=== PATIENT | female | born 1990 | race Caucasian/White ===

== ENCOUNTER 2020-03-06 12:15 | Inpatient (IN) ==
[2020-03-06] MEDS ORDERED: SODIUM CHLORIDE 0.9% 1000ML 1,000 ML IV ONE (12:53)
--- NOTE | 2020-03-06 13:06 | Emergency Department Note ---
History of Present Illness General Chief Complaint: Illness Stated Complaint: DIARRHEA/LOW BLOOD COUNT Time Seen by Provider: 03/06/20 12:33 Source: patient Mode of arrival: ambulatory Limitations: no limitations History of Present Illness Provider Complaint: abdominal pain Onset (ago): 2 month(s) Pain Consistency: constant Location: diffuse Maximum Pain Intensity: 8 Current Pain Intensity: 8 Quality: + sharp Relieved By: + nothing Exacerbated By: + bowel movement and + movement Associated Symptoms: + diarrhea and + chills Treatments prior to arrival: none This 29-year-old female patient presents to the emergency department today for evaluation of 2-month long history of diarrhea, abdominal pain. The patient states she is currently an inmate at [facility] and had labs completed on Monday which came back showing an anemia. The patient's hemoglobin was 9.3 and hematocrit was 29.7, down from 12.5 and 35.3 on 02/06/2020. The patient reports some intermittent rectal bleeding which she describes as bright red blo od per rectum coming from a hemorrhoid which has been present chronically. She states she has had diarrhea for 2 months straight without relief. She is currently on an unknown IBS drug without relief. She has not had any imaging regarding her symptoms. She reports chills and being cold frequently. She is having difficulty sleeping due to her symptoms. Patient denies any numbness, tingling, weakness, hematuria, dysuria, urinary frequency, urinary hesitancy. Last menstrual period was 1 month ago. She states she missed it last month. She has not been sexually active since December 2018. Patient denies any recent injury or trauma. Related Data Patient Confirmed : No Home Medications Home Medications Medication Instructions Recorded Confirmed Type acetaminophen [Tylenol Extra 500 mg PO TID PRN 03/06/20 03/06/20 History Strength] benzonatate [Tessalon Perles] 100 mg PO TID 03/06/20 03/06/20 History cholestyramine (with sugar) 4 g PO DAILY 03/06/20 03/06/20 History [Questran] hyoscyamine sulfate [Levbid] 0.375 mg PO BID 03/06/20 03/06/20 History phenyleph-shark cha-huco-gzy 1 applic [place] BID 03/06/20 03/06/20 History [Preparation H] Allergies Allergy/AdvReac Type Severity Reaction Status Date / Time No Known Allergies Allergy Unverified 03/06/20 15:05 Past Med/Surg History Medical History Diarrhea Social History Smoking Status: Current every day smoker Tobacco Type: Cigarettes Feels Safe at Home: Yes Review of Systems A total of 10 systems reviewed and were otherwise negative Physical Exam Vital Signs: Vital Signs - 24 hr 03/06/20 12:19 03/06/20 15:07 Temperature 36.9 C Temperature Source Oral Pulse Rate 93 H Pulse Rate [Finger ] 79 Respiratory Rate 18 16 Respiratory Effort / Characteristics Non-Labored Respiratory Depth Normal Blood Pressure 115/77 Blood Pressure [Ri ght Arm] 108/74 Blood Pressure Tammy n 89 Blood Pressure Tammy n [Right Arm] 85 Blood Pressure Pos ition Sitting Pulse Oximetry 100 Oxygen Delivery Me thod Room Air Sepsis Recent Feve r Within 48 Hours No Sepsis New/Unexpla ined Change in [place] Status N/A Sepsis Action Take n by Nursing No Action Required Physical Exam: VITALS: Vitals are noted on the nurse's note and reviewed by myself. Patient is normotensive. She is not tachycardic or febrile. O2 satura tion 100% on room air. GENERAL: This is a 29-year-old white female, in no acute distress, nondiaphor etic, well-developed well-nourished. SKIN: The skin was without rashes, erythema, edema, or bruising. There is no tenting of the skin. Capillary refill less than 2 seconds. HEAD: Normocephalic atraumatic. EYES: Conjunctivae without injection, sclerae without icterus. NECK: Supple without nuchal rigidity. No lymphadenopathy. No JVD. HEART: Regular rate and rhythm without murmurs gallops or rubs. LUNGS: Clear to auscultation bilaterally without wheezes, rales or rhonchi. No retractions or accessory muscle use. ABDOMEN: Positive bowel sounds x 4. Normal tympanic percussion. Generalized t enderness palpation, worse suprapubically. Abdomen otherwise soft, without masses or organomegaly. Sinclair sign negative. No guarding or rebound tenderness. No CVA tenderness bilaterally. RECTAL -hemorrhoid noted at the 6 o'clock position without active bleeding. There is mild tenderness to palpation. No rectal fissures. No skin tags appreciated. No active bleeding. A sterile, water-soluble lubricant was applied to the examiner's finger prior to internal exam. No rectal vault tenderness. No rectal masses. No fecal impaction. Stool Guaiac Test: Hemoccult negative. MUSCULOSKELETAL: No muscle atrophy, erythema, or edema noted. Full range of motion without joint tenderness in all extremities. No tenderness to palpation. Normal gait. Strength 5/5 throughout. NEURO: Patient was alert and oriented to person place and time. Deep tendon reflexes 2+ throughout. No focal neurological deficits. Course Course The patient was seen and evaluated as above. An order was placed for continuous cardiac monitoring. The monitor shows a normal sinus rhythm at a rate of 79 bpm. IV access obtained, labs drawn. Patient hydrated with IV fluids. Imaging performed and reviewed by myself and radiologist as noted. Labs reviewed by myself. I discussed the case with my attending. I discussed the case with JOSE Crenshaw at [facility] who advises there are no providers there this weekend and she is uncertain about management of this patient through the weekend with inability to obtain orders. I discussed the [facility] [place] ger[facility] case manager. I discussed the case with Dr. Ortega, [facility] hospitalist physician. He did agree to see and evaluate the patient for admission. I discussed the findings and recommendation with the patient at bedside. She was agreeable with the plan. Administered Medications Discontinued Medications Sodium Chloride (Nss 1000ml) 1,000 mls @ 999 mls/hr IV .Q1H1M ONE Stop: 03/06/20 13:53 Last Admin: 03/06/20 15:10 Dose: 999 mls/hr Documented by: [id number] Ioversol (Ioversol 100ml) 94 ml IV ONCE ONE Stop: 03/06/20 15:17 Last Admin: 03/06/20 15:17 Dose: 94 ml Documented by: [id number] Medical Decision Making Differential Diagnosis + peptic ulcer disease, + biliary pathology, + UTI, + obstruction, + mesenteric ischemia, + aortic pathology, + infections, + inflammatory bowel disease, + renal colic, + ectopic (female), + ovarian torsion (female), + tubo- ovarian abscesses (female), + pelvic inflammatory disease (female), + abdominal pain, + appendicitis, + calculus of kidney, + constipation, + diverticulitis, + endometriosis, + gastroenteritis, + pancreatitis and + small bowel obstruction Medical Records Attestation: I reviewed the patient's medical records. Home Medications Current Medication List: was personally reviewed by me Laboratory Data Attestation: I reviewed the patient's lab results. No leukocytosis. Anemia noted with hemoglobin 9.7 and hematocrit of 31.3. This does appear to be an iron deficiency anemia with low iron and elevated TIBC. Coags normal. Lipase 106. Urinalysis negative for blood or evidence of infection. Urine test negative. Result diagrams: 03/06/20 13:09 03/06/20 13:09 Lab Results 03/06/20 03/06/20 03/06/20 Range/Units 13:09 13:09 13:09 WBC 5.68 (4.8-10.8) K/uL RBC 3.21 L (4.2-5.4) M/uL Hgb 9.7 L (12.0-16.0) g/dL POC Hgb (12.0-16.0) g/dl Hct 31.3 L (37-47) % POC Hct (37-47) % MCV 97.5 (80-100) fL MCH 30.2 (25-34) pg MCHC 31.0 L (32-36) g/dL RDW Std Deviation 50.5 H (36.4-46.3) fL RDW Coeff of Anthony 14.6 H (11.5-14.5) % Plt Count 510 H (130-400) K/uL MPV 8.3 (7.4-10.4) fL Immature Gran % (Auto) 0.2 % Neut % (Auto) 48.0 % Lymph % (Auto) 43.7 % [place] % (Auto) 7.9 % Eos % (Auto) 0.0 % Baso % (Auto) 0.2 % Neut # (Auto) 2.73 (1.4-6.5) K/uL Lymph # (Auto) 2.48 (1.2-3.4) K/uL [place] # (Auto) 0.45 (0.11-0.59) K/uL Eos # (Auto) 0.00 (0-0.5) K/uL Baso # (Auto) 0.01 (0-0.2) K/uL Immature Gran # (Auto) 0.01 (0.00-0.02) K/uL PT 11.7 (9.0-12.0) Seconds INR 1.1 (0.9-1.1) APTT 28.1 (21.0-31.0) Seconds PTT Ratio 1.0 POC Sodium (135-144) mmol/L Sodium 138 (136-145) mmol/L POC Potassium (3.3-5.0) mmol/L Potassium 4.0 (3.5-5.1) mmol/L POC Chloride (101-112) mmol/L Chloride 107 (98-107) mmol/L Carbon Dioxide 28 (21-32) mmol/L POC Total CO2 (24-31) mmol/L Anion Gap 3.0 (3-11) POC Anion Gap (16-25) mmol/L POC BUN (7-18) mg/dl BUN 6 L (7-18) mg/dl Creatinine 0.75 (0.6-1.2) mg/dl POC Creatinine (0.6-1.3) mg/dl Est Cr Clr Drug Dosing 113.5 ml/min Est GFR ( Amer) 123.1 Est GFR (Non-Af Amer) 106.2 BUN/Creatinine Ratio 8.4 L (10-20) Glucose 83 (70-99) mg/dl POC Glucose (other) (70-99) mg/dl POC Lactic Acid Yonatan (0.90-1.70) mmol/L Calcium 7.8 L (8.5-10.1) mg/dl POC Ioniz Calcium Tyron (1.12-1.32) mmol/l Iron 22 L (35-150) mcg/dl TIBC 118 L (250-450) mcg/dl Ferritin 215.2 (8-388) ng/ml Total Bilirubin 0.2 (0.2-1) mg/dl AST 11 L (15-37) U/L ALT 16 (12-78) U/L Alkaline Phosphatase 113 (45-117) U/L Total Protein 5.7 L (6.4-8.2) gm/dl Albumin 1.2 L (3.4-5.0) gm/dl Globulin 4.5 H (2.5-4.0) gm/dl Albumin/Globulin Ratio 0.3 L (0.9-2) Lipase 106 (73-393) U/L Urine Color Urine Appearance (Clear) Urine pH (4.5-7.5) Ur Specific [place] (1.000-1.030) Urine Protein (Negative) Urine Glucose (UA) (Negative) Urine Ketones (Negative) Urine Blood (Negative) Urine Nitrite (Negative) Urine Bilirubin (Negative) Urine Urobilinogen (Negative) Ur Leukocyte Esterase (Negative) POC Ur Test (NEG) Blood Type Antibody Screen 03/06/20 03/06/20 03/06/20 Range/Units 13:09 13:22 13:27 WBC (4.8-10.8) K/uL RBC (4.2-5.4) M/uL Hgb (12.0-16.0) g/dL POC Hgb 9.9 L (12.0-16.0) g/dl Hct (37-47) % POC Hct 29 L (37-47) % MCV (80-100) fL MCH (25-34) pg MCHC (32-36) g/dL RDW Std Deviation (36.4-46.3) fL RDW Coeff of Anthony (11.5-14.5) % Plt Count (130-400) K/uL MPV (7.4-10.4) fL Immature Gran % (Auto) % Neut % (Auto) % Lymph % (Auto) % [place] % (Auto) % Eos % (Auto) % Baso % (Auto) % Neut # (Auto) (1.4-6.5) K/uL Lymph # (Auto) (1.2-3.4) K/uL [place] # (Auto) (0.11-0.59) K/uL Eos # (Auto) (0-0.5) K/uL Baso # (Auto) (0-0.2) K/uL Immature Gran # (Auto) (0.00-0.02) K/uL PT (9.0-12.0) Seconds INR (0.9-1.1) APTT (21.0-31.0) Seconds PTT Ratio POC Sodium 136 (135-144) mmol/L Sodium (136-145) mmol/L POC Potassium 4.0 (3.3-5.0) mmol/L Potassium (3.5-5.1) mmol/L POC Chloride 101 (101-112) mmol/L Chloride (98-107) mmol/L Carbon Dioxide (21-32) mmol/L POC Total CO2 23 L (24-31) mmol/L Anion Gap (3-11) POC Anion Gap 17.0 (16-25) mmol/L POC BUN 5 L (7-18) mg/dl BUN (7-18) mg/dl Creatinine (0.6-1.2) mg/dl POC Creatinine 0.8 (0.6-1.3) mg/dl Est Cr Clr Drug Dosing ml/min Est GFR ( Amer) Est GFR (Non-Af Amer) BUN/Creatinine Ratio (10-20) Glucose (70-99) mg/dl POC Glucose (other) 84 (70-99) mg/dl POC Lactic Acid Yonatan 0.64 L (0.90-1.70) mmol/L Calcium (8.5-10.1) mg/dl POC Ioniz Calcium Tyron 1.15 (1.12-1.32) mmol/l Iron (35-150) mcg/dl TIBC (250-450) mcg/dl Ferritin (8-388) ng/ml Total Bilirubin (0.2-1) mg/dl AST (15-37) U/L ALT (12-78) U/L Alkaline Phosphatase (45-117) U/L Total Protein (6.4-8.2) gm/dl Albumin (3.4-5.0) gm/dl Globulin (2.5-4.0) gm/dl Albumin/Globulin Ratio (0.9-2) Lipase (73-393) U/L Urine Color Urine Appearance (Clear) Urine pH (4.5-7.5) Ur Specific [place] (1.000-1.030) Urine Protein (Negative) Urine Glucose (UA) (Negative) Urine Ketones (Negative) Urine Blood (Negative) Urine Nitrite (Negative) Urine Bilirubin (Negative) Urine Urobilinogen (Negative) Ur Leukocyte Esterase (Negative) POC Ur Test (NEG) Blood Type B Positive Antibody Screen NEGATIVE 03/06/20 03/06/20 Range/Units Unknown Unknown WBC (4.8-10.8) K/uL RBC (4.2-5.4) M/uL Hgb (12.0-16.0) g/dL POC Hgb (12.0-16.0) g/dl Hct (37-47) % POC Hct (37-47) % MCV (80-100) fL MCH (25-34) pg MCHC (32-36) g/dL RDW Std Deviation (36.4-46.3) fL RDW Coeff of Anthony (11.5-14.5) % Plt Count (130-400) K/uL MPV (7.4-10.4) fL Immature Gran % (Auto) % Neut % (Auto) % Lymph % (Auto) % [place] % (Auto) % Eos % (Auto) % Baso % (Auto) % Neut # (Auto) (1.4-6.5) K/uL Lymph # (Auto) (1.2-3.4) K/uL [place] # (Auto) (0.11-0.59) K/uL Eos # (Auto) (0-0.5) K/uL Baso # (Auto) (0-0.2) K/uL Immature Gran # (Auto) (0.00-0.02) K/uL PT (9.0-12.0) Seconds INR (0.9-1.1) APTT (21.0-31.0) Seconds PTT Ratio POC Sodium (135-144) mmol/L Sodium (136-145) mmol/L POC Potassium (3.3-5.0) mmol/L Potassium (3.5-5.1) mmol/L POC Chloride (101-112) mmol/L Chloride (98-107) mmol/L Carbon Dioxide (21-32) mmol/L POC Total CO2 (24-31) mmol/L Anion Gap (3-11) POC Anion Gap (16-25) mmol/L POC BUN (7-18) mg/dl BUN (7-18) mg/dl Creatinine (0.6-1.2) mg/dl POC Creatinine (0.6-1.3) mg/dl Est Cr Clr Drug Dosing ml/min Est GFR ( Amer) Est GFR (Non-Af Amer) BUN/Creatinine Ratio (10-20) Glucose (70-99) mg/dl POC Glucose (other) (70-99) mg/dl POC Lactic Acid Yonatan (0.90-1.70) mmol/L Calcium (8.5-10.1) mg/dl POC Ioniz Calcium Tyron (1.12-1.32) mmol/l Iron (35-150) mcg/dl TIBC (250-450) mcg/dl Ferritin (8-388) ng/ml Total Bilirubin (0.2-1) mg/dl AST (15-37) U/L ALT (12-78) U/L Alkaline Phosphatase (45-117) U/L Total Protein (6.4-8.2) gm/dl Albumin (3.4-5.0) gm/dl Globulin (2.5-4.0) gm/dl Albumin/Globulin Ratio (0.9-2) Lipase (73-393) U/L Urine Color Yellow Urine Appearance Clear (Clear) Urine pH 7.0 (4.5-7.5) Ur Specific [place] 1.010 (1.000-1.030) Urine Protein Negative (Negative) Urine Glucose (UA) Negative (Negative) Urine Ketones Negative (Negative) Urine Blood Negative (Negative) Urine Nitrite Negative (Negative) Urine Bilirubin Negative (Negative) Urine Urobilinogen Negative (Negative) Ur Leukocyte Esterase Negative (Negative) POC Ur Test NEG (NEG) Blood Type Antibody Screen Imaging Data Radiologist's Impression: CT OF THE ABDOMEN AND PELVIS WITH CONTRAST CLINICAL HISTORY: Abdominal pain. Anemia. COMPARISON STUDY: None. TECHNIQUE: Following IV administration of 94 mL of Optiray-320, axial images of the abdomen and pelvis were obtained from the lung bases to the proximal femurs. Images were reviewed in the axial, sagittal, and coronal planes. IV contrast was administered without complication. Automated exposure control was utilized for the study. A dose lowering technique was utilized adhering to the principles of ALARA. CT DOSE: 392.78 mGy.cm FINDINGS: Visualized portions of the lower chest demonstrate trace bilateral pleural effusions and a small pericardial effusion. A 2.4 cm hypodense focus within the medial segment left hepatic lobe represents focal fat. There is no biliary or pancreatic ductal dilatation. The spleen, adrenal glands, kidneys and pancreas are unremarkable. There is no peripancreatic or pericholecystic infiltration. No pneumatosis, free air or portal venous gas is present. A 1.8 cm linear metallic density located anterior to the mid descending colon may reflect migration of a tubal ligation clip. There is no evidence for a bowel obstruction. There is moderate wall thickening and pericolonic infiltration involving the near entirety of the colon. There is relative sparing of the transverse colon. The appendix is normal. There is no abscess. Major vasculature is patent. A small amount of ascites is present. The ovaries are not enlarged. No suspicious osseous lesions are present. IMPRESSION: 1. Moderate wall thickening with pericolonic infiltration involving the near entirety of the colon with relative sparing of the transverse colon. This represents a moderate colitis, likely infectious or inflammatory in etiology. C. difficile colitis is within the differential. No abscess or free air. Small amount of ascites within the pelvis. 2. Small pericardial effusion with trace bilateral pleural effusions. 3. 1.8 cm metallic density located anterior to the mid descending colon which may reflect migration of the right tubal ligation clip. ACT 112: Negative or not required by law. Electronically signed by: Ricardo Frazier M.D. 03/06/2020 3:36 PM Blood Pressure Blood Pressure Findings: Normal blood pressure MDM Narrative This 29-year-old female patient presents to the emergency department today for evaluation of anemia, hypertension, and tachycardia noted at the correctional facility. The patient has been experiencing 2-month long history of abdominal pain and diarrhea. She has had outpatient work-up without obvious etiology. Work-up here in the ED concerning for a moderate colitis, likely infectious or inflammatory in etiology. The patient has not had a C. difficile test completed yet, so this was ordered. Given her anemia and colitis, as well as current social situation of being an inmate at a correctional facility with limited medical care, I do recommend inpatient evaluation and management of her symptoms. I did speak with the correctional facility, JOSE Crenshaw who advises that the patient is scheduled to be transferred to [place] early next week. I do feel that this will likely complicate her care and work-up as an outpatient. The patient will be admitted to the [facility] hospitalist service. Please see hospitalist dictation regarding ongoing management care of this patient. The chart was completed utilizing [employer] voice recognition software. Grammatical errors, random word insertions, pronoun errors, and incomplete sentences are an occasional consequence of this system due to software limitations, ambient noise, and hardware issues. Any formal questions or concerns about the content, text, or information contained within the body of this dictation should be directly addressed to the provider for clarification. Impression & Plan Colitis, Abdominal pain, Anemia Discharge Plan Visit Data Chief Complaint: Illness Stated Complaint: DIARRHEA/LOW BLOOD COUNT ED Provider: Yohana Raines ED Midlevel Provider: Renata Gomez Discharge Problem: Colitis, Abdominal pain, Anemia Patient Disposition: Admitted As Inpatient Condition: Good Forms Stand Alone Forms: [employer] Prescriptions Prescriptions: No Action acetaminophen [Tylenol Extra Strength] 500 mg Tablet 500 mg PO TID PRN (Reason: Pain) RF: 0 benzonatate [Tessalon Perles] 100 mg Capsule 100 mg PO TID RF: 0 Preparation H Cream 1 applic [place] BID RF: 0 hyoscyamine sulfate [Levbid] 0.375 mg Tablet Extended Release 12 Hr 0.375 mg PO BID RF: 0 cholestyramine (with sugar) [Questran] 4 gram Powder In Packet 4 g PO DAILY RF: 0 Referrals Referrals: Tim GOODWIN [Primary Care Provider] -
[2020-03-06 13:26] LABS: Basophils # (auto) 0.01 K/uL (0-0.2); Basophils % (auto) 0.2 %; Hematocrit (blood only) 31.3 % (37-47); Hemoglobin 9.7 g/dL (12.0-16.0); Immature Granulocytes # (auto) 0.01 K/uL (0.00-0.02); Immature Granulocytes % (auto) 0.2 %; Lymphocytes # (auto) 2.48 K/uL (1.2-3.4); Lymphocytes % (auto) 43.7 %; Mean Corpuscular Hemoglobin 30.2 pg (25-34); Mean Corpuscular Volume 97.5 fL (80-100); Mean Platelet Volume 8.3 fL (7.4-10.4); Monocytes # (auto) 0.45 K/uL (0.11-0.59); Monocytes % (auto) 7.9 %; Neutrophils # (auto) 2.73 K/uL (1.4-6.5); Platelet Count 510 K/uL (130-400); RDW Coefficient of Variation 14.6 % (11.5-14.5); RDW Standard Deviation 50.5 fL (36.4-46.3); Red Blood Count 3.21 M/uL (4.2-5.4); White Blood Count 5.68 K/uL (4.8-10.8)
[2020-03-06 13:40] LABS: iSTAT Creatinine 0.8 mg/dl (0.6-1.3); iSTAT Hemoglobin 9.9 g/dl (12.0-16.0); iSTAT Ionized Calcium 1.15 mmol/l (1.12-1.32)
[2020-03-06 13:40] LABS: INR 1.1 (0.9-1.1); Partial Thromboplastin Time 28.1 Seconds (21.0-31.0); Prothrombin Time 11.7 Seconds (9.0-12.0)
[2020-03-06 13:44] LABS: Albumin Level 1.2 gm/dl (3.4-5.0); BUN Creatinine Ratio 8.4 (10-20); Calcium 7.8 mg/dl (8.5-10.1); Creatinine Clr Calc Pharmacy 113.5 ml/min; Est GFR (African American) 123.1; Est GFR (Non-African American) 106.2
[2020-03-06 13:49] LABS: Albumin Globulin Ratio 0.3 (0.9-2); Bilirubin,Total 0.2 mg/dl (0.2-1); Ferritin 215.2 ng/ml (8-388); Globulin 4.5 gm/dl (2.5-4.0); Total Protein 5.7 gm/dl (6.4-8.2)
[2020-03-06 15:14] LABS: Appearance Urine Clear (Clear); Bilirubin Urine Negative (Negative); Blood Urine Negative (Negative); Color Urine Yellow; Glucose Urine UA Negative (Negative); Ketones Urine Negative (Negative); Leukocyte Esterase Urine Negative (Negative); Nitrite Urine Negative (Negative); Protein Urine Negative (Negative); Urobilinogen Urine Negative (Negative)
[2020-03-06] MEDS ORDERED: IOVERSOL 100ml IV ONE (15:16)
--- NOTE | 2020-03-06 15:38 | CT Scan Report ---
CT OF THE ABDOMEN AND PELVIS WITH CONTRAST CLINICAL HISTORY: Abdominal pain. Anemia. COMPARISON STUDY: None. TECHNIQUE: Following IV administration of 94 mL of Optiray-320, axial images of the abdomen and pelvi s were obtained from the lung bases to the proximal femurs. Images were reviewed in the axial, sagitt al, and coronal planes. IV contrast was administered without complication. Automated exposure contro l was utilized for the study. A dose lowering technique was utilized adhering to the principles of A SABRINA. CT DOSE: 392.78 mGy.cm FINDINGS: Visualized portions of the lower chest demonstrate trace bilateral pleural effusions and a small pericardial effusion. A 2.4 cm hypodense focus within the medial segment left hepatic lobe repr esents focal fat. There is no biliary or pancreatic ductal dilatation. The spleen, adrenal glands, ki dneys and pancreas are unremarkable. There is no peripancreatic or pericholecystic infiltration. No p neumatosis, free air or portal venous gas is present. A 1.8 cm linear metallic density located anteri or to the mid descending colon may reflect migration of a tubal ligation clip. There is no evidence f or a bowel obstruction. There is moderate wall thickening and pericolonic infiltration involving the near entirety of the colon. There is relative sparing of the transverse colon. The appendix is normal . There is no abscess. Major vasculature is patent. A small amount of ascites is present. The ovaries are not enlarged. No suspicious osseous lesions are present. IMPRESSION: 1. Moderate wall thickening with pericolonic infiltration involving the near entirety of the colon wi th relative sparing of the transverse colon. This represents a moderate colitis, likely infectious or inflammatory in etiology. C. difficile colitis is within the differential. No abscess or free air. S mall amount of ascites within the pelvis. 2. Small pericardial effusion with trace bilateral pleural effusions. 3. 1.8 cm metallic density located anterior to the mid descending colon which may reflect migration o f the right tubal ligation clip. ACT 112: Negative or not required by law. Electronically signed by: Ricardo Frazier M.D. 03/06/2020 3:36 PM
--- NOTE | 2020-03-06 17:17 | XRay Report ---
XR chest 1V portable CLINICAL HISTORY: Cough, shortness of breath COMPARISON STUDY: No previous studies for comparison. FINDINGS: Lung volumes are normal. Lungs are clear. There is no pneumothorax or pleural effusion. Car diac size is normal. Mediastinal contours are normal. There is no evidence for pulmonary edema. IMPRESSION: No acute cardiopulmonary findings. ACT 112: Negative or not required by law. Electronically signed by: Ricardo Frazier M.D. 03/06/2020 5:16 PM
--- NOTE | 2020-03-06 18:24 | Electrocardiogram Report ---
Test Reason : Blood Pressure : / mmHG Vent. Rate : 079 BPM Atrial Rate : 079 BPM P-R Int : 158 ms QRS Dur : 076 ms QT Int : 366 ms P-R-T Axes : 027 044 023 degrees QTc Int : 419 ms Normal sinus rhythm Low voltage QRS Borderline ECG No previous ECGs available Confirmed by Wilbur Cohn ([id number]) on 03/06/2020 6:24:26 PM Referred By: REFERRED SELF Confirmed By:Sacha Cohn
[2020-03-06] MEDS ORDERED: ONDANSETRON INJ 2 MG/ML 2 ML VIAL IV PRN (18:41)
[2020-03-06] MEDS: SODIUM CHLORIDE 0.9% 1000ML 1,000 ML IV SCH (19:55)
[2020-03-06] MEDS: BENZONATATE 100 MG CAPSULE PO PRN (20:03)
--- NOTE | 2020-03-06 20:36 | History & Physical Report ---
Date of Service March 06, 2020 Assessment & Plan (1) Colitis: Diffuse colitis on CT scan. Family history of Crohn's. Highest suspicion that this is UC or Crohn's. BUDDY Dumont did stool cultures, fecal fat, and O&P which were all normal. - C. diff and fecal leukocytes pending - Consulted GI -> Given strong suspicion for IBD, will likely need a colonoscopy this admission. (2) Anemia: Hgb was 12.5 in 01/2020; now down to 9.9. Iron studies show low iron, low TIBC, and elevated ferritin. Likely anemia of chronic disease mixed with iron deficiency. - Will give IV iron x 1 dose. - Monitor (3) DVT prophylaxis: SCDs - Holding heparin for GI bleeding Admission and Anticipated Discharge Date Admission Date: March 06, 2020 History of Present Illness Primary Care Provider: BUDDY Dumont 29yo F who presents with likely IBD. She reports long-standing constipation requiring laxatives. However, 2 months ago, she started having diarrhea. She was treated for IBS with Imodium and other diarrhea treatments. She has had blood in the stools in the last few weeks along with increasing abdominal pain. No fevers, no chills. She reports a cough and some shortness of breath starting about one week ago. Allergies Allergy/AdvReac Type Severity Reaction Status Date / Time No Known Allergies Allergy Unverified 03/06/20 15:05 Home Medications Home Medications Medication Instructions Recorded Confirmed Type acetaminophen [Tylenol Extra 500 mg PO TID PRN 03/06/20 03/06/20 History Strength] benzonatate [Tessalon Perles] 100 mg PO TID 03/06/20 03/06/20 History cholestyramine (with sugar) 4 g PO DAILY 03/06/20 03/06/20 History [Questran] hyoscyamine sulfate [Levbid] 0.375 mg PO BID 03/06/20 03/06/20 History phenyleph-shark [id number] 1 applic [place] BID 03/06/20 03/06/20 History [Preparation H] Past Med/Surg History Medical History Diarrhea Family History (Updated 03/06/20 @ 20:28 by Migel Ortega MD) Mother Crohn's disease Social History Smoking Status: Never smoker Tobacco Type: Cigarettes Do You Dip or Chew Tobacco: No; Hx Alcohol Use: No Hx Substance Use: No Preferred Language: Arabic Communication Ability: Effective Site Engineer Required: No Beliefs That Will Affect Care: None Current Living Situation: Other Current Living Situation Comment: [place] Feels Safe at Home: Yes Safety Concerns: Feels Safe At This Time Assistive Devices: None Review of Systems Review of Systems: All systems reviewed & are unremarkable except as noted in HPI & below Physical Exam Constitutional: WD/WN, vitals as above Eyes: EOM intact bilaterally; no conjunctival abnormality ENMT: external ear and nose normal, oropharynx normal Neck: trachea midline, no thyromegaly normal visual inspection Respiratory: normal respiratory effort, lungs clear to auscultation no respiratory distress Cardiovascular: RRR, no murmur, no edema Gastrointestinal (Abdomen): Inspection/Auscultation: abdomen normal to inspection and + hyperactive bowel sounds; abdomen not distended Percussion/Palpation: + abdomen tender and abdomen soft; no guarding and abdomen not rigid Musculoskeletal: no cyanosis or clubbing, extremities motor strength 5/5 Skin: no rashes, warm and dry Neurologic: moves all extremities and awake Psychiatric: Orientation: alert, oriented to person and cooperative Results & Data Results & Data ([facility]) Vital Signs (Past 12 Hours) Vital Signs Temp Pulse Pulse Resp BP BP Pulse Ox 03/06/20 18:41 36.7 C 97 H 18 96/66 L 100 03/06/20 18:10 90 14 100 03/06/20 18:00 89 15 114/78 100 03/06/20 17:50 83 13 100 03/06/20 17:40 103 H 13 03/06/20 17:30 109 H 16 112/79 03/06/20 17:20 86 16 93 03/06/20 17:10 102 H 24 99 03/06/20 17:00 91 H 12 97 03/06/20 16:59 94 03/06/20 16:57 84 18 106/70 100 03/06/20 15:07 85 79 16 108/74 03/06/20 15:03 79 14 108/74 03/06/20 12:19 36.9 C 93 H 18 115/77 100 PG Care Time/CCT Total # of Minutes Spent Total Time Spent with Patient: Total time spent is greater than 50% in coordination of care (as documented) at patient's floor/unit and/or counseling patient: Coding Level of Care Code 60880 Initial Inpt Care Lvl 3 Diagnoses Colitis K52.9 Anemia D50.8 Anemia type: iron deficiency Iron deficiency anemia type: other iron deficiency DVT prophylaxis Z29.9 (1) Anemia Anemia type: iron deficiency Iron deficiency anemia type: other iron deficiency Qualified Code(s): D50.8 - Other iron deficiency anemias
[2020-03-06] MEDS ORDERED: IRON SUCROSE 300 MG in SODIUM CHLORIDE 0.9% 250 ML IV STA (20:39)
[2020-03-06] MEDS: guaiFENesin/DEXTROM SYRUP 200MG/20MG 10ML UDC PO PRN (22:20)
[2020-03-06] MEDS: ACETAMINOPHEN 500 MG TAB PO PRN (23:26)
[2020-03-07] MEDS: MELATONIN 3 MG TAB PO PRN ×2 (01:27→22:41)
[2020-03-07 06:23] LABS: Hematocrit (blood only) 28.2 % (37-47); Hemoglobin 8.6 g/dL (12.0-16.0); Mean Corpuscular Hgb Conc 30.5 g/dL (32-36); Mean Corpuscular Volume 98.3 fL (80-100); Mean Platelet Volume 8.1 fL (7.4-10.4); Platelet Count 483 K/uL (130-400); RDW Coefficient of Variation 15.1 % (11.5-14.5); RDW Standard Deviation 52.7 fL (36.4-46.3); Red Blood Count 2.87 M/uL (4.2-5.4); White Blood Count 5.74 K/uL (4.8-10.8)
[2020-03-07 07:04] LABS: BUN Creatinine Ratio 8.5 (10-20); Calcium 6.8 mg/dl (8.5-10.1); Creatinine Clr Calc Pharmacy 127.1 ml/min; Est GFR (African American) 135.8; Est GFR (Non-African American) 117.1; Magnesium 1.9 mg/dl (1.8-2.4); Phosphorus 3.2 mg/dl (2.5-4.9)
[2020-03-07] MEDS: ACETAMINOPHEN 500 MG TAB PO PRN ×3 (08:02→22:39)
[2020-03-07] MEDS: guaiFENesin/DEXTROM SYRUP 200MG/20MG 10ML UDC PO PRN ×2 (08:03→13:53)
[2020-03-07] MEDS: SODIUM CHLORIDE 0.9% 1000ML 1,000 ML IV SCH ×2 (08:03→20:24)
[2020-03-07] MEDS ORDERED: SODIUM CHLORIDE 0.9% 1000ML 1,000 ML IV ONE (09:50)
[2020-03-07] MEDS: BENZONATATE 100 MG CAPSULE PO PRN (11:14)
--- NOTE | 2020-03-07 16:38 | Gastrointestinal Consultation ---
Date of Consultation March 07, 2020 Assessment & Plan (1) Colitis: Overall concerning for IBD given chronic diarrhea and family history of Crohn's disease in mother. CT reported to have findings of colitis. Will plan for colonoscopy on Monday Follow blood counts. Iron supplements History of Present Illness Attending Physician: Hari Duran Complaints of 8 weeks of diarrhea with blood and mucous Allergies Allergy/AdvReac Type Severity Reaction Status Date / Time No Known Allergies Allergy Unverified 03/06/20 15:05 Home Medications Home Medications Medication Instructions Recorded Confirmed Type acetaminophen [Tylenol Extra 500 mg PO TID PRN 03/06/20 03/06/20 History Strength] benzonatate [Tessalon Perles] 100 mg PO TID 03/06/20 03/06/20 History cholestyramine (with sugar) 4 g PO DAILY 03/06/20 03/06/20 History [Questran] hyoscyamine sulfate [Levbid] 0.375 mg PO BID 03/06/20 03/06/20 History phenyleph-shark [id number] 1 applic [place] BID 03/06/20 03/06/20 History [Preparation H] Patient History Medical History Diarrhea Family History Mother Crohn's disease Social History Smoking Status: Never smoker Tobacco Type: Cigarettes Do You Dip or Chew Tobacco: No; Hx Alcohol Use: No Hx Substance Use: No Preferred Language: Armenian Communication Ability: Effective Cake Wrapper Required: No Beliefs That Will Affect Care: None Current Living Situation: Other Current Living Situation Comment: [facility] [place] Feels Safe at Home: Yes Safety Concerns: Feels Safe At This Time Assistive Devices: None Review of Systems Constitutional: no fever, no chills and no weight loss Cardiovascular: + edema Physical Exam Physical Exam: NAD, chest clear, RRR Gastrointestinal (Abdomen): normal bowel sounds, soft, nontender, no hep atosplenomegaly Inspection/Auscultation: abdomen normal to inspection Skin: no rashes, warm and dry Psychiatric: Orientation: alert and oriented to person Apperance: appropriately dressed and appropriately groomed Eye Contact: good eye contact Affect: euthymic affect Results & Data ([facility]) Vital Signs (Past 12 Hours) Vital Signs Temp Pulse Resp BP Pulse Ox 03/07/20 16:07 36.7 C 101 H 16 107/73 100 03/07/20 10:53 36.7 C 97 H 16 94/67 L 99 03/07/20 07:49 37.4 C 102 H 19 90/59 L 93
[2020-03-07] MEDS: KETOROLAC 30 MG/ML VIAL IV PRN ×2 (17:23→23:46)
[2020-03-07] MEDS: guaiFENesin 600 MG TABCR PO SCH (20:24)
[2020-03-07] MEDS: HYDROcodone/HOMATROPINE SYRUP 5MG/1.5MG 5ML UDP PO PRN (20:33)
--- NOTE | 2020-03-07 22:37 | Hospitalist Progress Note ---
Date of Service March 07, 2020 Assessment & Plan (1) Colitis: Driver-colitis with severe hypoalbuminemia, weight loss, BRBPR, mucous, and family h/o IBD. C diff neg. Previous stool cx neg. This is highly concerning for IBD. Supportive care this weekend. Colonoscopy on Monday for dx. (2) Anemia: Hgb was 12.5 in 01/2020. Now in the 8-10 range. Likely blood loss from colitis. Cannot rule out other nutritional deficiencies. s/p venofer yesterday. repeat H/H in am. check b12/folate. (3) Pericardial effusion: small effusion noted on CT. she is having pleuritic chest pain. symptoms sound concerning for pericarditis. pericarditis from IBD?? start toradol q6h prn. echo in am. consider colchicine. if IBD is present needs Rx for that (steroids). (4) Severe protein-calorie malnutrition: add boost add MVI 2nd to severe colitis diagnostic colonoscopy tomorrow (5) Cough: cxr w/o infiltrates COVID neg consider dedicated CT (6) Pleuritic chest pain: see above (7) Diarrhea: likely not infectious. likely IBD. see above. (8) Hypoalbuminemia: albumin 1.2 severe likely 2nd to protein-losing enteropathy from colitis; highly concerning for IBD. (9) DVT prophylaxis: SCDs - chemical means contraindicated at this time due to GI blood losses Admission and Anticipated Discharge Date Admission Date: March 06, 2020 Subjective patient's main complaint is that of pleuritic type chest discomfort - worse with laying in bed - present for a few weeks ago. associated with cough and throat clearing. having ongoing loose stools w/ blood/mucous including nocturnal symptoms. 35 pounds of weight loss over the last few months. mother w/ Crohn's. Review of Systems Constitutional: no fever Respiratory: + dyspnea on exertion Cardiovascular: + chest pain and + orthopnea Gastrointestinal: + abdominal pain, + diarrhea/loose stools and + blood in stools Physical Exam Constitutional: no acute distress and no altered mental status ENMT: external ear and nose normal, oropharynx normal Respiratory: normal respiratory effort, lungs clear to auscultation Cardiovascular: Rate/Rhythm: regular rhythm and + tachycardic Heart Sounds: normal S1 and normal S2; no murmur and no cardiac rub Vessels: posterior tibial pulses present and dorsalis pedis pulses present; no JVD Extremities: + edema (1+ b/l ) Gastrointestinal (Abdomen): normal bowel sounds, soft, nontender, no hepatosplenomegaly Skin: + pallor Psychiatric: A+Ox3, euthymic affect Results & Data Results & Data ([facility]) Vital Signs (Past 12 Hours) Vital Signs Temp Pulse Resp BP Pulse Ox 03/07/20 16:07 36.7 C 101 H 16 107/73 100 03/07/20 10:53 36.7 C 97 H 16 94/67 L 99 Laboratory Results Laboratory Results - last 24 hr 03/06/20 03/06/20 03/07/20 21:20 21:30 06:12 WBC RBC Hgb Hct MCV MCH MCHC RDW Std Deviation RDW Coeff of Anthony Plt Count MPV Sodium 142 Potassium 4.0 Chloride 112 H Carbon Dioxide 26 Anion Gap 4.0 BUN 6 L Creatinine 0.67 Est Cr Clr Drug Dosing 127.1 Est GFR ( Amer) 135.8 Est GFR (Non-Af Amer) 117.1 BUN/Creatinine Ratio 8.5 L Glucose 92 Calcium 6.8 L Phosphorus 3.2 Magnesium 1.9 Nasal Screen MRSA (PCR) Negative Stl C. diff Tox B Gene Negative Cdiff Gene 03/07/20 06:13 WBC 5.74 RBC 2.87 L Hgb 8.6 L Hct 28.2 L MCV 98.3 MCH 30.0 MCHC 30.5 L RDW Std Deviation 52.7 H RDW Coeff of Anthony 15.1 H Plt Count 483 H MPV 8.1 Sodium Potassium Chloride Carbon Dioxide Anion Gap BUN Creatinine Est Cr Clr Drug Dosing Est GFR ( Amer) Est GFR (Non-Af Amer) BUN/Creatinine Ratio Glucose Calcium Phosphorus Magnesium Nasal Screen MRSA (PCR) Stl C. diff Tox B Gene PG Care Time/CCT Total # of Minutes Spent Total Time Spent with Patient: Total time spent is greater than 50% in coordination of care (as documented) at patient's floor/unit and/or counseling patient: Coding Level of Care Code 90146 Subseq Hosp Care Lvl 3 Diagnoses Colitis K52.9 Anemia D50.8 Anemia type: iron deficiency Iron deficiency anemia type: other iron deficiency Pericardial effusion I31.3 Severe protein-calorie malnutrition E43 Cough R05 Pleuritic chest pain R07.81 Diarrhea R19.7 Diarrhea type: unspecified type Hypoalbuminemia E88.09 DVT prophylaxis Z29.9 (1) Anemia Anemia type: iron deficiency Iron deficiency anemia type: other iron deficiency Qualified Code(s): D50.8 - Other iron deficiency anemias (2) Diarrhea Diarrhea type: unspecified type Qualified Code(s): R19.7 - Diarrhea, unspecified
[2020-03-08] MEDS: guaiFENesin SUGAR FREE 200 MG/10 ML UDC PO PRN ×3 (00:45→16:51)
[2020-03-08] MEDS: HYDROcodone/HOMATROPINE SYRUP 5MG/1.5MG 5ML UDP PO PRN ×3 (02:37→20:08)
[2020-03-08 06:46] LABS: BUN Creatinine Ratio 12.1 (10-20); Calcium 7.2 mg/dl (8.5-10.1); Est GFR (African American) 136.4; Est GFR (Non-African American) 117.7; Potassium 4.4 mmol/L (3.5-5.1)
[2020-03-08] MEDS: SODIUM CHLORIDE 0.9% 1000ML 1,000 ML IV SCH ×2 (08:01→20:26)
[2020-03-08] MEDS: KETOROLAC 30 MG/ML VIAL IV PRN ×3 (08:02→20:10)
[2020-03-08] MEDS: CEROVITE ADV FORMULA TAB PO SCH (08:05)
[2020-03-08] MEDS: guaiFENesin 600 MG TABCR PO SCH ×2 (08:05→20:46)
[2020-03-08 11:07] LABS: Folate (Folic Acid) 4.49 ng/ml (>5.38)
[2020-03-08] MEDS ORDERED: FOLIC ACID 1 MG in SYRINGE 9.8 ML IV ONE (12:15)
[2020-03-08] MEDS ORDERED: COLCHICINE 0.6 MG TAB PO ONE (13:00)
[2020-03-08] MEDS: ACETAMINOPHEN 500 MG TAB PO PRN (16:53)
[2020-03-08] MEDS: POLYETHYLENE (MIRALAX) 17 GM PACK PO SCH (18:22)
[2020-03-08] MEDS: COLCHICINE 0.6 MG TAB PO SCH (20:07)
[2020-03-08] MEDS: MELATONIN 3 MG TAB PO PRN (20:26)
--- NOTE | 2020-03-08 22:44 | Hospitalist Progress Note ---
Date of Service March 08, 2020 Assessment & Plan (1) Colitis: Driver-colitis with severe hypoalbuminemia, weight loss, BRBPR, mucous, and family h/o IBD. C diff neg. Previous stool cx neg. This is highly concerning for IBD. Prep today, Colonoscopy on Monday for dx. Appreciate GI assistance. (2) Acute blood loss anemia: 2nd colitis. (3) Anemia: Hgb was 12.5 in 01/2020. Now in the 8-10 range. Likely acute blood loss from colitis. Also w/ folate deficiency. s/p venofer yesterday. repeat H/H in am. (4) Pericarditis: Pleuritic chest pain, pericardial effusion on CT and echo, and response to toradol is all suggestive of pericarditis. Pericarditis could be from suspected IBD. Also has severe hypoalbuminemia which could be contributing to her effusion. She has had a cough for several weeks -- cannot rule out viral-induced pericarditis either. COVID-19 testing was negative. Spoke with on-call cardiology -- start colchicine 0.6mg BID. Will need repeat echo in a few weeks post-d/c. Will need cardiology f/u post-d/c. NO TAMPONADE on echo today. check baseline ESR in am. (5) Pleuritic chest pain: see above (6) Pericardial effusion: small effusion noted on CT. echo confirms such. no tamponade physiology. suspect due to IBD (to have confirmatory colonoscopy tomorrow). hypoalbuminemia could also contribute to effusion (but low albumin is due to her colitis anyway). see above. (7) Severe protein-calorie malnutrition: added boost added MVI folate supplementation IV Fe earlier in the stay 2nd to severe colitis diagnostic colonoscopy tomorrow (8) Cough: cxr w/o infiltrates COVID neg consider dedicated CT but o2 sats wnl in RA cont mucinex (9) Diarrhea: likely not infectious. likely IBD. see above. (10) Hypoalbuminemia: albumin 1.2 severe likely 2nd to protein-losing enteropathy from colitis; highly concerning for IBD. (11) Folate deficiency: folic acid 1mg IV daily. at d/c change to PO folate and take for 1-2 months. b12 wnl. (12) Edema: likely 2nd to severe hypoalbuminemia could consider dopplers to r/o DVT but less likely echo with normal EF, normal valve function, no tamponade physiology, etc (13) DVT prophylaxis: SCDs - chemical means contraindicated at this time due to GI blood losses labs in am cont IVF prep for colonoscopy tomorrow Admission and Anticipated Discharge Date Admission Date: March 06, 2020 Subjective patient reports that the toradol helps very well with mid-sternal pleuritic pain. has had several doses since yesterday. still with cough, dry, but no worse than previous. diarrhea continues. blood per rectum continues. tolerating diet. no change in LE edema. Review of Systems Constitutional: no fever and no chills Respiratory: + dyspnea on exertion (Minimal ); no dyspnea Cardiovascular: as per Subjective / HPI, + chest pain and + edema; no orthopnea Gastrointestinal: no abdominal pain, no nausea and no vomiting Physical Exam Constitutional: no acute distress and no altered mental status ENMT: external ear and nose normal, oropharynx normal Respiratory: normal respiratory effort, lungs clear to auscultation Cardiovascular: Rate/Rhythm: regular rate and regular rhythm Heart Sounds: normal S1 and normal S2; no murmur and no cardiac rub Vessels: posterior tibial pulses present and dorsalis pedis pulses present; no JVD Extremities: + edema (1+ b/l ) Gastrointestinal (Abdomen): normal bowel sounds, soft, nontender, no hepatosplenomegaly Skin: + pallor Psychiatric: A+Ox3, euthymic affect Results & Data Results & Data ([facility]) Vital Signs (Past 12 Hours) Vital Signs Temp Pulse Resp BP Pulse Ox 03/08/20 22:16 36.8 C 107 H 16 89/59 L 98 03/08/20 15:22 36.7 C 110 H 16 86/57 L 100 Laboratory Results Laboratory Results - last 24 hr 03/08/20 03/08/20 03/08/20 05:58 05:58 05:58 Hgb 9.5 L Sodium 142 Potassium 4.4 Chloride 112 H Carbon Dioxide 26 Anion Gap 4.0 BUN 8 Creatinine 0.66 Est Cr Clr Drug Dosing 129.0 Est GFR ( Amer) 136.4 Est GFR (Non-Af Amer) 117.7 BUN/Creatinine Ratio 12.1 Glucose 80 Calcium 7.2 L Vitamin B12 1298 H Folate 4.49 L PG Care Time/CCT Total # of Minutes Spent Total Time Spent with Patient: Total time spent is greater than 50% in coordination of care (as documented) at patient's floor/unit and/or counseling patient: Coding Level of Care Code 56286 Subseq Hosp Care Lvl 3 Diagnoses Colitis K52.9 Acute blood loss anemia D62 Anemia D50.8 Anemia type: iron deficiency Iron deficiency anemia type: other iron deficiency Pericarditis I30.9 Pericarditis type: associated with other disease Chronicity: acute Pleuritic chest pain R07.81 Pericardial effusion I31.3 Severe protein-calorie malnutrition E43 Cough R05 Diarrhea R19.7 Diarrhea type: unspecified type Hypoalbuminemia E88.09 Folate deficiency E53.8 Edema R60.9 DVT prophylaxis Z29.9 (1) Anemia Anemia type: iron deficiency Iron deficiency anemia type: other iron deficiency Qualified Code(s): D50.8 - Other iron deficiency anemias (2) Diarrhea Diarrhea type: unspecified type Qualified Code(s): R19.7 - Diarrhea, unspecified (3) Pericarditis Pericarditis type: associated with other disease Chronicity: acute Qualified Code(s): I30.9 - Acute pericarditis, unspecified
[2020-03-09] MEDS: POLYETHYLENE (MIRALAX) 17 GM PACK PO SCH (05:41)
[2020-03-09 07:10] LABS: Hematocrit (blood only) 30.9 % (37-47); Hemoglobin 9.2 g/dL (12.0-16.0); Mean Corpuscular Hgb Conc 29.8 g/dL (32-36); Mean Corpuscular Volume 100.7 fL (80-100); Mean Platelet Volume 8.3 fL (7.4-10.4); Platelet Count 499 K/uL (130-400); RDW Coefficient of Variation 15.7 % (11.5-14.5); RDW Standard Deviation 55.4 fL (36.4-46.3); Red Blood Count 3.07 M/uL (4.2-5.4); White Blood Count 5.95 K/uL (4.8-10.8)
[2020-03-09 07:12] LABS: Calcium 7.2 mg/dl (8.5-10.1); Est GFR (African American) 136.4; Est GFR (Non-African American) 117.7; Potassium 3.9 mmol/L (3.5-5.1)
[2020-03-09] MEDS: KETOROLAC 30 MG/ML VIAL IV PRN ×2 (07:47→18:37)
[2020-03-09] MEDS: guaiFENesin SUGAR FREE 200 MG/10 ML UDC PO PRN ×2 (07:48→21:39)
[2020-03-09] MEDS: HYDROcodone/HOMATROPINE SYRUP 5MG/1.5MG 5ML UDP PO PRN ×2 (07:55→18:38)
[2020-03-09] MEDS: SODIUM CHLORIDE 0.9% 1000ML 1,000 ML IV SCH ×2 (08:55→09:14)
[2020-03-09] MEDS: FOLIC ACID 1 MG in SYRINGE 9.8 ML IV SCH (09:05)
[2020-03-09] MEDS: COLCHICINE 0.6 MG TAB PO SCH ×2 (09:05→21:39)
[2020-03-09] MEDS: CEROVITE ADV FORMULA TAB PO SCH (09:05)
[2020-03-09] MEDS: guaiFENesin 600 MG TABCR PO SCH ×2 (09:05→21:38)
--- NOTE | 2020-03-09 14:36 | History & Physical Report ---
Date of Service March 09, 2020 Assessment & Plan Admission and Anticipated Discharge Date Admission Date: March 06, 2020 History of Present Illness Chief Complaint: Colitis on CT Primary Care Provider: BUDDY Dumont For colonoscopy Allergies Allergy/AdvReac Type Severity Reaction Status Date / Time No Known Allergies Allergy Unverified 03/06/20 15:05 Home Medications Home Medications Medication Instructions Recorded Confirmed Type acetaminophen [Tylenol Extra 500 mg PO TID PRN 03/06/20 03/06/20 History Strength] benzonatate [Tessalon Perles] 100 mg PO TID 03/06/20 03/06/20 History cholestyramine (with sugar) 4 g PO DAILY 03/06/20 03/06/20 History [Questran] hyoscyamine sulfate [Levbid] 0.375 mg PO BID 03/06/20 03/06/20 History phenyleph-shark [id number] 1 applic [place] BID 03/06/20 03/06/20 History [Preparation H] Past Med/Surg History Medical History (Updated 03/09/20 @ 11:48 by Hari Duran) Diarrhea Family History Mother Crohn's disease Social History Smoking Status: Never smoker Tobacco Type: Cigarettes Do You Dip or Chew Tobacco: No; Hx Alcohol Use: No Hx Substance Use: No Preferred Language: Tuvaluan Communication Ability: Effective Professional Nursing Tutor Required: No Beliefs That Will Affect Care: None Current Living Situation: Other Current Living Situation Comment: [facility] Feels Safe at Home: Yes Safety Concerns: Feels Safe At This Time Assistive Devices: None Physical Exam Constitutional: + obese Respiratory: normal respiratory effort Cardiovascular: Rate/Rhythm: regular rate and regular rhythm Gastrointestinal (Abdomen): Percussion/Palpation: abdomen soft Results & Data ([facility]) Vital Signs (Past 12 Hours) Vital Signs Temp Pulse Resp BP Pulse Ox 03/09/20 11:49 36.9 C 75 16 84/54 L 98 03/09/20 10:06 78 16 85/57 L 03/09/20 08:08 36.9 C 03/09/20 07:55 37.6 C H 105 H 16 84/51 L 96
[2020-03-09] MEDS ORDERED: SODIUM CHLORIDE 0.9% 1000ML 1,000 ML IV SCH (14:45)
--- NOTE | 2020-03-09 15:24 | Anesthesiology Consultation ---
Date of Service March 09, 2020 Assessment & Plan (1) Encounter for pre-operative examination: Chart Review Chart Review: Acceptable Risk for Surgery and Patient NOT seen in Pre Admission Testing hcg negative 03/06/2002. COVID neg 03/06/2020. Patient has been relatively hypotensive for several days. will use ketamine/propofol combo with albumin and ephedrine for BP control. Consults Requested none History Surgery Operation Date: 03/09/20 17:00 Proposed Procedures p Colonoscopy Dr Neena Chaudhary Height/Weight Height: 5 ft 6 in Weight: 76.5 kg Allergies Allergy/AdvReac Type Severity Reaction Status Date / Time No Known Allergies Allergy Unverified 03/06/20 15:05 Medications Home Medications Medication Instructions Recorded Confirmed Last Taken acetaminophen [Tylenol Extra 500 mg PO TID PRN 03/06/20 03/06/20 Unknown Strength] benzonatate [Tessalon Perles] 100 mg PO TID 03/06/20 03/06/20 Unknown cholestyramine (with sugar) 4 g PO DAILY 03/06/20 03/06/20 Unknown [Questran] hyoscyamine sulfate [Levbid] 0.375 mg PO BID 03/06/20 03/06/20 Unknown phenyleph-shark [id number] 1 applic [place] BID 03/06/20 03/06/20 Unknown [Preparation H] Active Medications Generic Name Dose Route Start Last Admin Trade Name Freq PRN Reason Stop Dose Admin Acetaminophen 500 mg 03/06/20 18:41 03/08/20 16:53 Acetaminophen 500 Mg Tab PO 04/05/20 18:40 500 mg TID PRN Administration Pain Colchicine 0.6 mg 03/08/20 21:00 03/09/20 09:05 Colchicine 0.6 Mg Tab PO 04/07/20 20:59 0.6 mg BID VENUS Administration Guaifenesin 1,200 mg 03/07/20 21:00 03/09/20 09:05 Guaifenesin 600 Mg Tabcr PO 04/06/20 20:59 1,200 mg Q12 VENUS Administration Guaifenesin 200 mg 03/07/20 23:59 03/08/20 16:51 Guaifenesin Sugar Free 200 Mg/10 Ml Udc PO 04/06/20 23:58 200 mg Q6H PRN Administration Cough Hydrocodone Bit/Homatropine Methylb 5 ml 03/07/20 17:08 03/09/20 07:55 Hydrocodone/Homatropine Syrup 5mg/1.5mg 5ml Udp PO 03/21/20 17:07 5 ml Q6H PRN Administration Cough Folic Acid 1 mg/ Syringe 10 mls @ 5 mls/min 03/09/20 09:00 03/09/20 09:05 IV 04/08/20 08:59 5 mls/min QAM VENUS Administration Ketorolac Tromethamine 30 mg 03/07/20 17:07 03/09/20 07:47 Ketorolac 30 Mg/Ml Vial IV 03/12/20 17:06 30 mg Q6H PRN Administration Pain Melatonin 3 mg 03/07/20 01:05 03/08/20 20:26 Melatonin 3 Mg Tab PO 04/06/20 01:04 3 mg HS PRN Administration Sleep Multivitamins/Minerals 1 tab 03/08/20 09:00 03/09/20 09:05 Cerovite Adv Formula Tab PO 04/07/20 08:59 Not Given QAM VENUS NPO Date Last Intake of Fluids: 03/08/20 Time Last Intake of Fluids: 23:59 Date Last Intake of Solids: 03/08/20 Time Last Intake of Solids: 23:59 Past Medical History Medical History (Updated 03/09/20 @ 15:29 by Eduin Levi MD) Acute blood loss anemia Diarrhea Hypoalbuminemia Pericardial effusion Pericarditis Pleuritic chest pain Exercise / Class Metabolic Activity II 4-5 Yardwork/Stairs/Walk up hill Past Family History Family History Mother Crohn's disease Past Anesthesia History No Hx of Anesthesia Complications and No Family Hx of Anesthesia Complications History of PONV No Hx of PONV and No Hx of Motion Sickness Social History Smoking Status: Never smoker Do You Dip or Chew Tobacco: No Hx Alcohol Use: No Hx Substance Use: No substance use type: does not use Physical Exam Vital Signs Last Vital Signs Temp 37.7 C H 03/09/20 16:02 Pulse 93 H 03/09/20 16:02 Resp 16 03/09/20 16:02 BP 98/65 L 03/09/20 16:02 Pulse Ox 100 03/09/20 16:02 Testing Laboratory Results 03/09/20 06:06 03/09/20 06:06 PT 11.7 Seconds (9.0-12.0) 03/06/20 13:09 INR 1.1 (0.9-1.1) 03/06/20 13:09 APTT 28.1 Seconds (21.0-31.0) 03/06/20 13:09 Urine Color Yellow 03/06/20 Unknown Urine Appearance Clear (Clear) 03/06/20 Unknown Urine pH 7.0 (4.5-7.5) 03/06/20 Unknown Ur Specific [place] 1.010 (1.000-1.030) 03/06/20 Unknown Urine Protein Negative (Negative) 03/06/20 Unknown Urine Glucose (UA) Negative (Negative) 03/06/20 Unknown Urine Ketones Negative (Negative) 03/06/20 Unknown Urine Nitrite Negative (Negative) 03/06/20 Unknown Ur Leukocyte Esterase Negative (Negative) 03/06/20 Unknown Blood Type B Positive 03/06/20 13:09 Antibody Screen NEGATIVE 03/06/20 13:09 03/06/20 21:20 WBC Smear - Final Stool 03/06/20 Unknown POC Ur Test NEG Electrocardiogram Date: 03/06/20 Test Reason : Blood Pressure : / mmHG Vent. Rate : 079 BPM Atrial Rate : 079 BPM P-R Int : 158 ms QRS Dur : 076 ms QT Int : 366 ms P-R-T Axes : 027 044 023 degrees QTc Int : 419 ms Normal sinus rhythm Low voltage QRS Borderline ECG No previous ECGs available Confirmed by Wilbur Cohn ([id number]) on 03/06/2020 6:24:26 PM Echocardiogram Date: 03/08/20 EF 55-60% LV normal size and function Small pericardial effusion WITHOUT tamponade.
[2020-03-09] MEDS ORDERED: ALBUMIN HUMAN 5% 12.5 GM/250 ML VIAL IV ONE (15:41)
[2020-03-09] MEDS ORDERED: ePHEDrine sulfate 50 MG/ML AMP ONE (15:52)
[2020-03-09] MEDS ORDERED: PROPOFOL IV EMULSION 10 MG/ML 20 ML VIAL IV ONE (15:52)
[2020-03-09] MEDS ORDERED: KETAMINE 50 MG/5 ML SYRINGE ONE (15:52)
--- NOTE | 2020-03-09 16:44 | GI REPORT ---
Patient Name: Teetee Espinoza Procedure Date: 03/09/2020 3:57 PM Date of : 1990 Admit Type: Inpatient Age: 29 Gender: Female Attending MD: Wenceslao Chaudhary MD Procedure: Colonoscopy Providers: Wenceslao Chaudhary MD Referring MD: Misty Hollingsworth Indications: Generalized abdominal pain, Clinically significant diarrhea of unexplained origin, Rectal bleeding, Family history of Crohn's disease in a first-degree relative Medicines: Propofol total dose 130 mg IV, Ketamine 25 mg IV, Lidocaine 40 mg IV Complications: No immediate complications. Estimated Blood Loss: Estimated blood loss: none. Procedure: Pre-Anesthesia Assessment: - Prior to the procedure, a History and Physical was performed, and patient medications, allergies and sensitivities were reviewed. The patient's tolerance of previous anesthesia was reviewed. - The risks and benefits of the procedure and the sedation options and risks were discussed with the patient. All questions were answered and informed consent was obtained. After I obtained informed consent, the scope was passed under direct vision. Throughout the procedure, the patient's blood pressure, pulse, and oxygen saturations were monitored continuously. The Colonoscope was introduced through the anus and advanced to the cecum, identified by appendiceal orifice and ileocecal valve. The colonoscopy was performed without difficulty. The patient tolerated the procedure well. The quality of the bowel preparation was good. Findings: Hemorrhoids were found on perianal exam. AA [Extent] area of [Severity] erythematous mucosa was found [Site]. IInflammation characterized by erythema, friability, granularity and deep ulcerations was found in a continuous and circumferential pattern from the anus to the cecum. No sites were spared. This was severe, and when compared to previous examinations, the findings are new. Impression: - Hemorrhoids found on perianal exam. - Erythematous mucosa. - Crohn's disease with colonic involvement. Inflammation was found from the anus to the cecum. This was severe, new compared to previous examinations. - No specimens collected. Recommendation: - Return patient to [facility] for [facility] care. - Full liquid diet today. - Use methylprednisolone 20 mg IV tid [Frequency] for 5 days. Wenceslao Chaudhary M.D. Wenceslao Chaudhary MD 03/09/2020 4:44:11 PM This report has been signed electronically. Note Initiated On: 03/09/2020 3:57 PM Number of Addenda: 0 I attest to the content of the Intraoperative Record and orders documented therein, exceptions below {[id number]}
--- NOTE | 2020-03-09 16:50 | Anesthesiology Progress Note ---
Date of Service March 09, 2020 Anesthesia Post Procedure Vital Signs Vital Signs: Temp Pulse Resp BP Pulse Ox 03/09/20 16:46 94 H 16 84/71 L 100 03/09/20 16:31 100 H 17 101/67 100 03/09/20 16:02 37.7 C H 93 H 16 98/65 L 100 03/09/20 15:28 37.1 C 90 16 92/62 L 100 03/09/20 11:49 36.9 C 75 16 84/54 L 98 03/09/20 10:06 78 16 85/57 L 03/09/20 08:08 36.9 C 03/09/20 07:55 37.6 C H 105 H 16 84/51 L 96 03/08/20 22:16 36.8 C 107 H 16 89/59 L 98 Pain Intensity Abdomen: Pain Intensity: 8 Bilateral Chest: Pain Intensity: 7 Transfer of Care Handoff Completed per policy Notes Mental Status: alert / awake / arousable and participated in evaluation Patient Amnestic to Procedure: Yes Nausea / Vomiting: adequately controlled Pain: adequately controlled Airway Patency, RR, SpO2: stable & adequate BP & HR: stable & adequate Hydration State: stable & adequate Anesthetic Complications: no major complications apparent and Pt Satisfied with anesthetic care
--- NOTE | 2020-03-09 17:22 | Progress Notes ---
DATE: 03/09/2020 HISTORY OF PRESENT ILLNESS: The patient presented to the hospital yesterday with a 2-month history of severe abdominal pain, diarrhea, rectal bleeding and a family history of Crohn's disease in her mother who request required resection in the past. The patient was placed on bowel rest and underwent a colonoscopy today. The exam was carried to the cecum. There was severe what appeared to be Crohn's colitis involving the entire colon continuously. There were deep ulcerations, friability and inflammation throughout the colon. PHYSICAL EXAMINATION: Her abdomen is tender. 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 There is no erythema nodosum on her shins. IMPRESSION: The patient has what appears to be severe Crohn's colitis. I plan on starting her on Solu-Medrol 20 mg 3 times a day intravenously. She will be on bowel rest on a full liquid diet. We will check hepatitis B and tuberculosis test in anticipation of beginning a biologic. We will have further discussions with her about this tomorrow. Hopefully, we can get her started on a biologic and it will be helpful and if not, she may require a colectomy.
--- NOTE | 2020-03-09 20:18 | Hospitalist Progress Note ---
Date of Service March 09, 2020 Assessment & Plan (1) Crohn's disease: Patient presented with pancolitis at admission Colonoscopy today's reveals severe pancolitis secondary to Crohn's disease Steroids as prescribed by gastroenterology Liquid diet Supportive care Continued management per gastroenterology. Appreciate their input (2) Folate deficiency: Continue Venofer while inpatient Will most likely need oral iron supplementation as an outpatient Follow serial labs as an outpatient Calorie malnutrition secondary to Crohn's disease (3) Cough: Negative for COVID-19 Past history of tobacco abuse but not currently a smoker No coughing during my interview and examination Chest x-ray without any evidence of infiltrate or consolidation or masses Continue supportive care (4) Severe protein-calorie malnutrition: Most likely secondary to severe Crohn's disease Continue with boost supplement We will need high-protein meals Continue to follow (5) Colitis: Secondary to Crohn's disease Continue supportive care per gastroenterology recommendations (6) Anemia: Most likely multifactorial to chronic disease from Crohn's disease which was undiagnosed as well as iron deficiency Could also have an aspect of blood loss secondary to pancolitis and external hemorrhoids Continue with Venofer We will need oral iron supplementation on discharge (7) DVT prophylaxis: No chemical prophylaxis at this time secondary to acute pancolitis and blood loss anemia NORBERTO hose and SCDs Patient unable to ambulate secondary to incarceration status and requirement for leg restraints while in inpatient Admission and Anticipated Discharge Date Admission Date: March 06, 2020 Supervising Physician Co-Signing Physician Notes Pancolitis, thought to be related to Crohn's Being managed by GI Subjective Attending: Dr. Misty Hollingsworth This is a 29-year-old female that is currently incarcerated [facility] correctional facility. She was admitted 03/06/2020 with colitis and concern for Crohn's disease. She also had a drop in hemoglobin from 12.5-9.9 which could be combination of anemia of chronic disease mixed with iron deficiency. She has a past medical history of tobacco abuse but currently does not smoke. She has 2 children and no complications with childbirth. She has no prior history of diagnosed bowel disease. She denies fever, chills, sweats, rigors. She has no nausea or vomiting. Appetite is appropriate. She has no early satiety. She has no abdominal pain with eating. She denies hematemesis. She has no other acute complaints at this time. Review of Systems Review of Systems: All systems reviewed & are unremarkable except as noted in Subjective Physical Exam Physical Exam: GENERAL : No acute distress EYES: No icterus, gaze conjugate NOSE: No evidence of epistaxis MOUTH: No lesions or candidiasis NECK: Supple LUNGS: CTA B/L, no wheezes, rales or rhonchi HEART: Regular, rate controlled ABDOMEN: Soft, ND, BS Present. Patient with diffuse tenderness to palpation. EXTREMITIES: No LE edema, pedal pulses intact NEURO: A&OX3 Results & Data Results & Data ([facility]) Vital Signs (Past 12 Hours) Vital Signs Temp Pulse Resp BP Pulse Ox 03/09/20 19:17 36.7 C 95 H 16 99/68 L 100 03/09/20 18:22 36.6 C 94 H 16 97/67 L 100 03/09/20 17:47 36.5 C 101 H 16 108/73 100 03/09/20 17:18 37 C 99 H 16 81/55 L 100 03/09/20 17:00 102 H 12 106/78 94 03/09/20 16:46 94 H 16 84/71 L 100 03/09/20 16:31 100 H 17 101/67 100 03/09/20 16:02 37.7 C H 93 H 16 98/65 L 100 03/09/20 15:28 37.1 C 90 16 92/62 L 100 03/09/20 11:49 36.9 C 75 16 84/54 L 98 03/09/20 10:06 78 16 85/57 L 03/09/20 08:08 36.9 C Laboratory Results 03/09/20 06:06 03/09/20 06:06 Diagnostic Findings Colonoscopy performed today with evidence of Crohn's disease PG Care Time/CCT Total # of Minutes Spent Total Time Spent with Patient: Total time spent is greater than 50% in coordination of care (as documented) at patient's floor/unit and/or counseling patient: 25 minutes Coding Level of Care Code 35520 Subseq Hosp Care Lvl 2 Diagnoses Crohn's disease K50.90 Folate deficiency E53.8 Cough R05 Severe protein-calorie malnutrition E43 Colitis K52.9 Anemia D50.8 Anemia type: iron deficiency Iron deficiency anemia type: other iron deficiency DVT prophylaxis Z29.9 Time Spent (min) 25 (1) Anemia Anemia type: iron deficiency Iron deficiency anemia type: other iron deficiency Qualified Code(s): D50.8 - Other iron deficiency anemias
[2020-03-09] MEDS: methylPREDNISolone 20 MG in SYRINGE 0 ML IV SCH (21:39)
[2020-03-09] MEDS: ACETAMINOPHEN 500 MG TAB PO PRN (21:50)
[2020-03-09] MEDS: MELATONIN 3 MG TAB PO PRN (23:36)
[2020-03-10] MEDS: KETOROLAC 30 MG/ML VIAL IV PRN ×4 (01:07→21:12)
[2020-03-10] MEDS: HYDROcodone/HOMATROPINE SYRUP 5MG/1.5MG 5ML UDP PO PRN (01:07)
[2020-03-10] MEDS: FOLIC ACID 1 MG in SYRINGE 9.8 ML IV SCH (07:41)
[2020-03-10] MEDS: methylPREDNISolone 20 MG in SYRINGE 0 ML IV SCH ×3 (07:41→21:12)
[2020-03-10] MEDS: guaiFENesin 600 MG TABCR PO SCH ×2 (07:41→21:10)
[2020-03-10] MEDS: CEROVITE ADV FORMULA TAB PO SCH (07:42)
[2020-03-10] MEDS: COLCHICINE 0.6 MG TAB PO SCH ×2 (07:42→21:09)
[2020-03-10] MEDS: guaiFENesin SUGAR FREE 200 MG/10 ML UDC PO PRN (07:46)
--- NOTE | 2020-03-10 15:42 | Hospitalist Progress Note ---
Date of Service March 10, 2020 Assessment & Plan (1) Crohn's disease: Patient presented with pancolitis at admission Colonoscopy 03/09/2020 reveals severe pancolitis secondary to Crohn's disease Steroids as prescribed by gastroenterology QuantiFERON gold to rule out tuberculosis so that Biologics may be considered Liquid diet Supportive care Continued management per gastroenterology. Appreciate Dr. Chaudhary's input (2) Folate deficiency: Continue Venofer while inpatient Will most likely need oral iron supplementation as an outpatient Follow serial labs as an outpatient Calorie malnutrition secondary to Crohn's disease (3) Cough: Negative for COVID-19 Past history of tobacco abuse but not currently a smoker No coughing during my interview and examination Continue guaifenesin (Robitussin) Discontinue hydrocodone/homatroprine syrup Chest x-ray without any evidence of infiltrate or consolidation or masses Continue supportive care (4) Severe protein-calorie malnutrition: Most likely secondary to severe Crohn's disease Continue with boost supplement We will need high-protein meals Continue to follow (5) Colitis: Secondary to Crohn's disease Continue supportive care per gastroenterology recommendations (6) Anemia: Hemoglobin has been stable above 9 g/Marcio. No indication for transfusion at this time Most likely multifactorial to chronic disease from Crohn's disease which was undiagnosed as well as iron deficiency Could also have an aspect of blood loss secondary to pancolitis and external hemorrhoids Continue with Venofer We will need oral iron supplementation on discharge (7) DVT prophylaxis: No chemical prophylaxis at this time secondary to acute pancolitis and blood loss anemia NORBERTO hose and SCDs Patient ambulating the hallways adequately with escort. Continue to ambulate as tolerated Admission and Anticipated Discharge Date Admission Date: March 06, 2020 Subjective Attending: Dr. Red Gore This is a 29-year-old female that was admitted 11 with colitis concerning for Crohn's disease. She underwent colonoscopy yesterday and found to have severe disease. She was started on IV Solu-Medrol, and testing was started including QuantiFERON gold to qualify patient for biologic treatment. The patient is sick enough that she may require colectomy this admission. At this time patient is an inmate at [facility]. Due to her disease, she most likely will need to transfer to [facility]'s correctional facility. I spoke with the patient about this transfer and indicated that we would facilitate as needed. At this point patient continues to have abdominal pain particularly with light palpation. She is not having nausea and vomiting. She continues with bloody diarrhea but this seems to have improved in the last day. She continues with a liquid diet. I spoke with Dr. Chaudhary from gastroenterology regarding plan. Patient denies fever, chills, sweats, rigors. She has no chest pain or tightness. She has no awareness of palpitations. She has no acute complaints today. Review of Systems Review of Systems: All systems reviewed & are unremarkable except as noted in Subjective Physical Exam Physical Exam: GENERAL : No acute distress EYES: No icterus, gaze conjugate NOSE: No evidence of epistaxis MOUTH: No lesions or candidiasis NECK: Supple LUNGS: CTA B/L, no wheezes, rales or rhonchi HEART: Regular, rate controlled ABDOMEN: Soft, ND, BS Present. Tender to deep palpation and percussion. EXTREMITIES: Trace LE edema, pedal pulses intact NEURO: A&OX3 Results & Data Results & Data ([facility]) Vital Signs (Past 12 Hours) Vital Signs Temp Pulse Resp BP Pulse Ox 03/10/20 08:19 36.6 C 63 16 104/69 99 Laboratory Results 03/09/20 06:06 03/09/20 06:06 Diagnostic Findings Colonoscopy 03/09/2020 No other diagnostic images PG Care Time/CCT Total # of Minutes Spent Total Time Spent with Patient: Total time spent is greater than 50% in coordination of care (as documented) at patient's floor/unit and/or counseling patient:30 minutes including discussion with Dr. Chaudhary and other providers. Coding Level of Care Code 10576 Subseq Hosp Care Lvl 2 Diagnoses Crohn's disease K50.90 Folate deficiency E53.8 Cough R05 Severe protein-calorie malnutrition E43 Colitis K52.9 Anemia D50.8 Anemia type: iron deficiency Iron deficiency anemia type: other iron deficiency DVT prophylaxis Z29.9 Time Spent (min) 30 (1) Anemia Anemia type: iron deficiency Iron deficiency anemia type: other iron def iciency Qualified Code(s): D50.8 - Other iron deficiency anemias
--- NOTE | 2020-03-10 16:56 | Progress Notes ---
DATE: 03/10/2020 SUBJECTIVE: The patient continues to have abdominal pain. Her appetite is increased since starting on IV Solu-Medrol 20 mg 3 times a day. She has had 6 bloody bowel movements today. She does have a pericardial effusion without tamponade. OBJECTIVE: VITAL SIGNS: Normal. ABDOMEN: Soft, but tender throughout. IMPRESSION: The patient has severe Crohn's colitis complicated by pericarditis and scleritis. She is currently on IV Solu-Medrol. Hepatitis B is negative. Test for TB is pending. We will try to get the TB results from the [facility]. The problem is that she is going to need to take a biologic for her disease which is severe and the pharmacy here will not dispense induction dosing of biologics due to the cost and inability to get reimbursed. Transferring her to the [facility] at the [facility] is not a good long-term solution because they are probably not able to authorize or begin biologic therapy or monitored while she is there. I plan on checking at [facility] tomorrow to find out if they have any options available or suggestions on how to proceed with her treatment.
[2020-03-10] MEDS: MELATONIN 3 MG TAB PO PRN (21:27)
[2020-03-10] MEDS: ACETAMINOPHEN 500 MG TAB PO PRN (21:27)
[2020-03-11] MEDS: CEROVITE ADV FORMULA TAB PO SCH (07:45)
[2020-03-11] MEDS: methylPREDNISolone 20 MG in SYRINGE 0 ML IV SCH ×3 (07:45→20:48)
[2020-03-11] MEDS: guaiFENesin 600 MG TABCR PO SCH ×2 (07:45→20:48)
[2020-03-11] MEDS: COLCHICINE 0.6 MG TAB PO SCH ×2 (07:45→20:48)
[2020-03-11] MEDS: FOLIC ACID 1 MG in SYRINGE 9.8 ML IV SCH (07:46)
[2020-03-11] MEDS: KETOROLAC 30 MG/ML VIAL IV PRN ×3 (07:47→20:54)
[2020-03-11 08:27] LABS: Quantiferon Mitogen-NIL >10.00 IU/mL; Quantiferon NIL 0.07 IU/mL; Quantiferon TB Gold Plus NEGATIVE (NEGATIVE); Quantiferon TB2-NIL 0.01 IU/mL
--- NOTE | 2020-03-11 17:03 | Progress Notes ---
DATE: 03/11/2020 The patient continues on IV Solu-Medrol 20 mg q.8 hours. Her scleritis is somewhat improving. She continues to have multiple bloody bowel movements a day. She continues to have abdominal pain, controlled with Toradol. She is tolerating a full liquid diet without any nausea or vomiting. Her hepatitis B surface antigen and tuberculosis tests are both negative. The hospital pharmacy is not able to administer biologics as an inpatient as they are not reimbursed for them, so we will need to arrange for that to be given in some time as an outpatient. I also ordered a TPMT genetic profile activity level today anticipating that we may need to put her on an immunomodulator as well such as 6-mercaptopurine or azathioprine. I have a call in to [facility] awaiting to see if they have any suggestions or may be willing to take her in transfer as I am not sure the infirmary at [facility] will be able to handle this. I did speak to a nurse there this evening and she told me to call back tomorrow when the head nurse is there and she feels that it is likely that the patient will not return to [facility] and may be going back to the [facility] where they have a more advanced infirmary. Regardless, we need to try to get coverage for a biologic and have it delivered in a timely fashion so that we can start to hopefully wean her off the steroids.
[2020-03-11] MEDS: MELATONIN 3 MG TAB PO PRN (20:54)
--- NOTE | 2020-03-11 22:53 | Hospitalist Progress Note ---
Date of Service March 11, 2020 Assessment & Plan (1) Crohn's disease: Patient presented with pancolitis at admission Colonoscopy 03/09/2020 reveals severe pancolitis secondary to Crohn's disease Steroids as prescribed by gastroenterology QuantiFERON gold to rule out tuberculosis so that Biologics may be considered Liquid diet Supportive care Continued management per gastroenterology. Appreciate Dr. Chaudhary's input It appears patient has not improve. Unable to provide biologics here May need to be transferred to [facility] for colectomy, if no improvement.. (2) Folate deficiency: folic acid 1mg IV daily. at d/c change to PO folate and take for 1-2 months. b12 wnl. (3) Cough: cxr w/o infiltrates COVID neg consider dedicated CT but o2 sats wnl in RA cont mucinex (4) Severe protein-calorie malnutrition: added boost added MVI folate supplementation IV Fe earlier in the stay 2nd to severe colitis (5) Colitis: Driver-colitis with severe hypoalbuminemia, weight loss, BRBPR, mucous, and family h/o IBD. C diff neg. Previous stool cx neg. This is highly concerning for IBD. (6) Anemia: Hgb was 12.5 in 01/2020. Now in the 8-10 range. Likely acute blood loss from colitis. Also w/ folate deficiency. s/p venofer yesterday. repeat H/H in am. (7) DVT prophylaxis: SCDs - chemical means contraindicated at this time due to GI blood losses Admission and Anticipated Discharge Date Admission Date: March 06, 2020 Subjective No new symptoms. No significant improvement. However frequency of stool has decreased from 14 to 10. Review of Systems Review of Systems: All systems reviewed & are unremarkable except as noted in HPI & below Physical Exam Physical Exam: Constitutional: WD/WN, vitals as above Eyes: EOM intact bilaterally; no conjunctival abnormality ENMT: external ear and nose normal, oropharynx normal Neck: trachea midline, no thyromegaly normal visual inspection Respiratory: normal respiratory effort, lungs clear to auscultation no respiratory distress Cardiovascular: RRR, no murmur, no edema Gastrointestinal (Abdomen): Inspection/Auscultation: abdomen normal to inspection and + hyperactive bowel sounds; abdomen not distended Percussion/Palpation: + abdomen tender and abdomen soft; no guarding and abdomen not rigid Musculoskeletal: no cyanosis or clubbing, extremities motor strength 5/5 Skin: no rashes, warm and dry Neurologic: moves all extremities and awake Psychiatric: Orientation: alert, oriented to person and cooperative Results & Data Results & Data ([facility]) Vital Signs (Past 12 Hours) Vital Signs Temp Pulse Resp BP Pulse Ox 03/11/20 16:07 36.6 C 73 16 100/68 98 PG Care Time/CCT Total # of Minutes Spent Total Time Spent with Patient: Total time spent is greater than 50% in coordination of care (as documented) at patient's floor/unit and/or counseling patient: Coding Level of Care Code 50471 Subseq Hosp Care Lvl 3 Diagnoses Crohn's disease K50.90 Folate deficiency E53.8 Cough R05 Severe protein-calorie malnutrition E43 Colitis K52.9 Anemia D50.8 Anemia type: iron deficiency Iron deficiency anemia type: other iron deficiency DVT prophylaxis Z29.9 Time Spent (min) 35 (1) Anemia Anemia type: iron deficiency Iron deficiency anemia type: other iron deficiency Qualified Code(s): D50.8 - Other iron deficiency anemias
[2020-03-12] MEDS: KETOROLAC 30 MG/ML VIAL IV PRN ×3 (03:03→16:01)
--- NOTE | 2020-03-12 08:39 | Gastroenterology Progress Note ---
Date of Service March 12, 2020 Assessment & Plan (1) Crohn's disease: (2) Colitis: Patient has Crohn's disease with colonic involvement with severe inflammation was found from the anus to the cecum on inpatient colonoscopy 03/09/2020. 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 She is currently on IV Solu-Medrol. Hepatitis B is negative. Test for TB is negative. TPMT results pending. Unable to give biologics as inpatient. Patient may require colectomy due to severity of disease. Dr. Chaudhary spoke to colorectal surgery, Dr. Sanchez, at [facility] this morning regarding patient case. Would recommend medical transfer of the patient to further manage care. Spoke to Dr. Begum this morning who will facilitate medicine service transfer. Please refer to supervising physician addendum for further recommendations. Admission and Anticipated Discharge Date Admission Date: March 06, 2020 Supervising Physician Co-Signing Physician Notes I have seen and examined the patient. I agree with note above by KATHERINE Cary except as noted below. HPI Pt s;tates diarrhea and abd pain worsening. Has had 9 stools today with bleeding. PE Abdomen pos bs, soft, no guarding nor rebound. A/P crohns colitis---plan for transfer to [place] for biologic and/or colectomy as needed. Subjective Patient awake, alert, sitting upright in bed eating breakfast. Reports she is having bloody bowel movements about 10 times daily. Mostly blood and little stool per her report. Reports 3 episodes already this morning. Is having continued bilateral lower abdominal pain. Pain is reduced with Toradol - reports currently pain is 6/10. Denies nausea or vomiting. Current residence - [facility]. Review of Systems Review of Systems: All systems reviewed & are unremarkable except as noted in Subjective Physical Exam Constitutional: WD/WN, vitals as above + obese ENMT: Ears: no external ear abnormality Nose: no external nose abnormality Neck: normal visual inspection and trachea midline Respiratory: normal respiratory effort; no respiratory distress and no labored breathing Cardiovascular: Rate/Rhythm: regular rate and regular rhythm Gastrointestinal (Abdomen): Inspection/Auscultation: normal bowel sounds Percussion/Palpation: + abdomen tender and abdomen soft; no guarding and abdomen not rigid Musculoskeletal: Extremities: extremities normal to inspection Results & Data ([facility]) Vital Signs (Past 12 Hours) Vital Signs Temp Pulse Resp BP Pulse Ox 03/11/20 23:04 36.5 C 74 16 107/70 99 Laboratory Results - last 24 hr 03/11/20 16:28 TPMT Activity, Quant Pending Laboratory Results - last 48 hr 03/09/20 17:28 TB Test (QFT) Gold Plus NEGATIVE TB Test (QFT) Nil 0.07 TB Test Mitogen - Nil >10.00 TB Test Ag - Nil 1 0.00 TB Test Ag - Nil 2 0.01
[2020-03-12] MEDS: methylPREDNISolone 20 MG in SYRINGE 0 ML IV SCH ×3 (09:35→21:15)
[2020-03-12] MEDS: COLCHICINE 0.6 MG TAB PO SCH ×2 (09:36→21:14)
[2020-03-12] MEDS: guaiFENesin 600 MG TABCR PO SCH ×2 (09:36→21:14)
[2020-03-12] MEDS: FOLIC ACID 1 MG in SYRINGE 9.8 ML IV SCH (09:36)
[2020-03-12] MEDS: CEROVITE ADV FORMULA TAB PO SCH (09:37)
[2020-03-12] MEDS: ACETAMINOPHEN 500 MG TAB PO PRN ×2 (18:24→21:25)
[2020-03-12] MEDS: MELATONIN 3 MG TAB PO PRN (21:25)
[2020-03-12] MEDS ORDERED: HYDROmorphone INJ 0.5 MG/0.5 ML SYR IV STA (22:09)
--- NOTE | 2020-03-12 23:27 | Hospitalist Progress Note ---
Date of Service March 12, 2020 Assessment & Plan (1) Crohn's disease: Patient presented with pancolitis at admission Colonoscopy 03/09/2020 reveals severe pancolitis secondary to Crohn's disease Steroids as prescribed by gastroenterology QuantiFERON gold to rule out tuberculosis so that Biologics may be considered Liquid diet Supportive care Continued management per gastroenterology. Appreciate Dr. Chauhdary's input It appears patient has not improve. Unable to provide biologics here May need to be transferred to [facility] for colectomy. [place] [facility] however no beds. They are unsure if patient would need a colectomy t this time. recommend to start biologics, however, there is concern that patient may ultimately need a colectomy And biologics ma delay surgery. will continue to monitor. (2) Folate deficiency: folic acid 1mg IV daily. at d/c change to PO folate and take for 1-2 months. b12 wnl. (3) Cough: cxr w/o infiltrates COVID neg consider dedicated CT but o2 sats wnl in RA cont mucinex (4) Severe protein-calorie malnutrition: added boost added MVI folate supplementation IV Fe earlier in the stay 2nd to severe colitis (5) Colitis: Driver-colitis with severe hypoalbuminemia, weight loss, BRBPR, mucous, and family h/o IBD. C diff neg. Previous stool cx neg. This is highly concerning for IBD. (6) Anemia: Hgb was 12.5 in 01/2020. Now in the 8-10 range. Likely acute blood loss from colitis. Also w/ folate deficiency. s/p venofer yesterday. repeat H/H in am. (7) DVT prophylaxis: SCDs - chemical means contraindicated at this time due to GI blood losses Admission and Anticipated Discharge Date Admission Date: March 06, 2020 Subjective Patient reports no significant improvement today. Review of Systems Review of Systems: All systems reviewed & are unremarkable except as noted in HPI & below Physical Exam Physical Exam: Constitutional: WD/WN, vitals as above Eyes: EOM intact bilaterally; no conjunctival abnormality ENMT: external ear and nose normal, oropharynx normal Neck: trachea midline, no thyromegaly normal visual inspection Respiratory: normal respiratory effort, lungs clear to auscultation no respiratory distress Cardiovascular: RRR, no murmur, no edema Gastrointestinal (Abdomen): Inspection/Auscultation: abdomen normal to inspection and + hyperactive bowel sounds; abdomen not distended Percussion/Palpation: + abdomen tender and abdomen soft; no guarding and abdomen not rigid Musculoskeletal: no cyanosis or clubbing, extremities motor strength 5/5 Skin: no rashes, warm and dry Neurologic: moves all extremities and awake Psychiatric: Orientation: alert, oriented to person and cooperative Results & Data Results & Data ([facility]) Vital Signs (Past 12 Hours) Vital Signs Temp Pulse Resp BP Pulse Ox 03/12/20 22:57 36.8 C 79 16 105/70 98 03/12/20 15:09 36.7 C 84 16 97/64 L 98 PG Care Time/CCT Total # of Minutes Spent Total Time Spent with Patient: Total time spent is greater than 50% in coordination of care (as documented) at patient's floor/unit and/or counseling patient: Prolonged Care Time Prolonged Care Time: Yes Total Prolonged Care Time: 70 14:00 to 15:10 Coding Level of Care Code 21292 Subseq Hosp Care Lvl 3 Diagnoses Crohn's disease K50.90 Folate deficiency E53.8 Cough R05 Severe protein-calorie malnutrition E43 Colitis K52.9 Anemia D50.8 Anemia type: iron deficiency Iron deficiency anemia type: other iron deficiency DVT prophylaxis Z29.9 Additional Codes Prolonged Care Time - Prolonged Care Time: Yes ([id number]) Time Spent (min) 65 (1) Anemia Anemia type: iron deficiency Iron deficiency anemia type: other iron deficiency Qualified Code(s): D50.8 - Other iron deficiency anemias
[2020-03-13 07:31] LABS: Basophils # (auto) 0.01 K/uL (0-0.2); Basophils % (auto) 0.1 %; Eosinophils # (auto) 0.01 K/uL (0-0.5); Eosinophils % (auto) 0.1 %; Hematocrit (blood only) 29.6 % (37-47); Hemoglobin 8.9 g/dL (12.0-16.0); Immature Granulocytes # (auto) 0.17 K/uL (0.00-0.02); Immature Granulocytes % (auto) 2.3 %; Lymphocytes # (auto) 2.02 K/uL (1.2-3.4); Lymphocytes % (auto) 27.6 %; Mean Corpuscular Hemoglobin 30.7 pg (25-34); Mean Corpuscular Hgb Conc 30.1 g/dL (32-36); Mean Corpuscular Volume 102.1 fL (80-100); Mean Platelet Volume 8.3 fL (7.4-10.4); Monocytes # (auto) 1.04 K/uL (0.11-0.59); Monocytes % (auto) 14.2 %; Neutrophils # (auto) 4.06 K/uL (1.4-6.5); Neutrophils % (auto) 55.7 %; Nucleated RBC # (auto) 0.02 K/uL (0-0); Nucleated RBC % (auto) 0.3 %; Platelet Count 548 K/uL (130-400); RDW Coefficient of Variation 16.7 % (11.5-14.5); RDW Standard Deviation 61.8 fL (36.4-46.3); White Blood Count 7.31 K/uL (4.8-10.8)
[2020-03-13 08:02] LABS: Alanine Aminotransferase 37 U/L (12-78); Albumin Level 1.3 gm/dl (3.4-5.0); Aspartate Aminotransferase 25 U/L (15-37); BUN Creatinine Ratio 10.1 (10-20); Blood Urea Nitrogen 7 mg/dl (7-18); Calcium 8.2 mg/dl (8.5-10.1); Carbon Dioxide 28 mmol/L (21-32); Chloride 111 mmol/L (98-107); Creatinine Clr Calc Pharmacy 116.7 ml/min; Est GFR (African American) 127.2; Est GFR (Non-African American) 109.7; Glucose 90 mg/dl (70-99); Potassium 4.8 mmol/L (3.5-5.1); Sodium 142 mmol/L (136-145)
[2020-03-13 08:05] LABS: Albumin Globulin Ratio 0.3 (0.9-2); Alkaline Phosphatase 89 U/L (45-117); Bilirubin,Total < 0.1 mg/dl (0.2-1); Globulin 3.9 gm/dl (2.5-4.0); Total Protein 5.2 gm/dl (6.4-8.2)
--- NOTE | 2020-03-13 09:07 | Gastroenterology Progress Note ---
Date of Service March 13, 2020 Assessment & Plan (1) Crohn's disease: (2) Colitis: Patient has Crohn's disease with colonic involvement with severe inflammation was found from the anus to the cecum on inpatient colonoscopy 03/09/2020. 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 She is currently on IV Solu-Medrol. Hepatitis B is negative. Test for TB is negative. TPMT results pending. Unable to give biologics as inpatient. Patient may require colectomy due to severity of disease. Dr. Chaudhary spoke to colorectal surgery, Dr. Sanchez, at [facility] 03/12/2020 regarding patient case. Would recommend medical transfer of the patient to further manage care. Patient has been accepted for transfer to [facility] but no bed is available per case management. Patient is requesting medications for pain management - will defer to medicine for management. Please refer to supervising physician addendum for further recommendations. Admission and Anticipated Discharge Date Admission Date: March 06, 2020 Supervising Physician Co-Signing Physician Notes I have seen and examined the patient. I agree with note above by KATHERINE Cary except as noted below. HPI Pt states abd pain somewhat better on tramadol. She states has had 17 bms in last 24 hours. PE Abdomen pos bs, soft, no guarding nor rebound A/P crohns----waiting for transport to [place] today. Subjective Patient awake, alert, sitting upright in bed eating breakfast. Reports she is having bloody bowel movements - 11 yesterday and 2 so far this morning. Mostly blood and little stool per her report. Is having continued bilateral lower abdominal pain. Toradol was discontinued. Denies nausea or vomiting. Current residence - [facility]. Review of Systems Review of Systems: All systems reviewed & are unremarkable except as noted in Subjective Physical Exam Constitutional: WD/WN, vitals as above ENMT: Ears: no external ear abnormality Nose: no external nose abnormality Neck: normal visual inspection and trachea midline Respiratory: normal respiratory effort; no respiratory distress and no labored breathing Gastrointestinal (Abdomen): Inspection/Auscultation: normal bowel sounds Percussion/Palpation: + abdomen tender and abdomen soft; no guarding and abdomen not rigid Musculoskeletal: Extremities: extremities normal to inspection Results & Data ([facility]) Vital Signs (Past 12 Hours) Vital Signs Temp Pulse Resp BP Pulse Ox 03/13/20 07:30 36.7 C 71 16 107/73 100 03/12/20 22:57 36.8 C 79 16 105/70 98 Laboratory Results - last 24 hr 03/12/20 03/12/20 03/13/20 18:25 18:25 07:01 WBC 7.31 RBC 2.90 L Hgb 8.9 L Hct 29.6 L MCV 102.1 H MCH 30.7 MCHC 30.1 L RDW Std Deviation 61.8 H RDW Coeff of Anthony 16.7 H Plt Count 548 H MPV 8.3 Immature Gran % (Auto) 2.3 Neut % (Auto) 55.7 Lymph % (Auto) 27.6 Treasure % (Auto) 14.2 Eos % (Auto) 0.1 Baso % (Auto) 0.1 Neut # (Auto) 4.06 Lymph # (Auto) 2.02 Treasure # (Auto) 1.04 H Eos # (Auto) 0.01 Baso # (Auto) 0.01 Immature Gran # (Auto) 0.17 H Absolute Nucleated RBC 0.02 H Nucleated RBC % (auto) 0.3 Sodium Potassium Chloride Carbon Dioxide Anion Gap BUN Creatinine Est Cr Clr Drug Dosing Est GFR ( Amer) Est GFR (Non-Af Amer) BUN/Creatinine Ratio Glucose Calcium Total Bilirubin AST ALT Alkaline Phosphatase Total Protein Albumin Globulin Albumin/Globulin Ratio COVID-19 Eval Order Cov[facility] SARS-CoV-2, RNA, NAAT NEGATIVE 03/13/20 07:01 WBC RBC Hgb Hct MCV MCH MCHC RDW Std Deviation RDW Coeff of Anthony Plt Count MPV Immature Gran % (Auto) Neut % (Auto) Lymph % (Auto) Treasure % (Auto) Eos % (Auto) Baso % (Auto) Neut # (Auto) Lymph # (Auto) Treasure # (Auto) Eos # (Auto) Baso # (Auto) Immature Gran # (Auto) Absolute Nucleated RBC Nucleated RBC % (auto) Sodium 142 Potassium 4.8 Chloride 111 H Carbon Dioxide 28 Anion Gap 3.0 BUN 7 Creatinine 0.73 Est Cr Clr Drug Dosing 116.7 Est GFR ( Amer) 127.2 Est GFR (Non-Af Amer) 109.7 BUN/Creatinine Ratio 10.1 Glucose 90 Calcium 8.2 L Total Bilirubin < 0.1 L AST 25 ALT 37 Alkaline Phosphatase 89 Total Protein 5.2 L Albumin 1.3 L Globulin 3.9 Albumin/Globulin Ratio 0.3 L COVID-19 Eval Order SARS-CoV-2, RNA, NAAT
[2020-03-13] MEDS: CEROVITE ADV FORMULA TAB PO SCH (09:47)
[2020-03-13] MEDS: methylPREDNISolone 20 MG in SYRINGE 0 ML IV SCH ×2 (09:47→14:08)
[2020-03-13] MEDS: guaiFENesin 600 MG TABCR PO SCH (09:47)
[2020-03-13] MEDS: FOLIC ACID 1 MG in SYRINGE 9.8 ML IV SCH (09:47)
[2020-03-13] MEDS: COLCHICINE 0.6 MG TAB PO SCH (09:47)
[2020-03-13] MEDS: ACETAMINOPHEN 500 MG TAB PO PRN (09:50)
[2020-03-13] MEDS: traMADol HCL 50 MG TABLET PO PRN ×2 (10:29→16:03)
[2020-03-13 16:40] VITALS: BP 112/76; PULSE 95; TEMP 97.9; O2SAT 98
--- NOTE | 2020-03-22 17:15 | Discharge Summary ---
Date of Service March 13, 2020 Admission HPI Per Admitting Provider For colonoscopy Principal Diagnosis crohn's disease Discharge Exam Constitutional: WD/WN, vitals as above Eyes: EOM intact bilaterally; no conjunctival abnormality ENMT: external ear and nose normal, oropharynx normal Neck: trachea midline, no thyromegaly normal visual inspection Respiratory: normal respiratory effort, lungs clear to auscultation no respiratory distress Cardiovascular: RRR, no murmur, no edema Gastrointestinal (Abdomen): Inspection/Auscultation: abdomen normal to inspection and + hyperactive bowel sounds; abdomen not distended Percussion/Palpation: + abdomen tender and abdomen soft; no guarding and abdomen not rigid Musculoskeletal: no cyanosis or clubbing, extremities motor strength 5/5 Skin: no rashes, warm and dry Neurologic: moves all extremities and awake Psychiatric: Orientation: alert, oriented to person and cooperative Discharge Data Allergies Allergy/AdvReac Type Severity Reaction Status Date / Time No Known Allergies Allergy Unverified 03/06/20 15:05 Consultations 03/06/20 16:34 ED Decision to Admit Stat 03/06/20 18:41 Consult Gastroenterology Routine 03/13/20 13:19 Burn CD for patient Stat Procedures Performed Operation Date: 03/09/20 17:00 Actual Procedures p Colonoscopy - Wenceslao Chaudhary Ordered Studies 03/06/20 12:54 CT abd pelvis IV con only Stat Hospital Course (1) Crohn's disease: Patient presented with pancolitis at admission Colonoscopy 03/09/2020 reveals severe pancolitis secondary to Crohn's disease Steroids as prescribed by gastroenterology QuantiFERON gold to rule out tuberculosis so that Biologics may be considered Liquid diet Supportive care Continued management per gastroenterology. Appreciate Dr. Chaudhary's input It appears patient has not improve. Unable to provide biologics here May need to be transferred to [facility] for colectomy. Called [facility], patient is accepted will be transferred today. (2) Folate deficiency: folic acid 1mg IV daily. at d/c change to PO folate and take for 1-2 months. b12 wnl. (3) Cough: cxr w/o infiltrates COVID neg consider dedicated CT but o2 sats wnl in RA cont mucinex (4) Severe protein-calorie malnutrition: added boost added MVI folate supplementation IV Fe earlier in the stay 2nd to severe colitis (5) Colitis: Driver-colitis with severe hypoalbuminemia, weight loss, BRBPR, mucous, and family h/o IBD. C diff neg. Previous stool cx neg. This is highly concerning for IBD. (6) Anemia: Hgb was 12.5 in 01/2020. Now in the 8-10 range. Likely acute blood loss from colitis. Also w/ folate deficiency. s/p venofer yesterday. repeat H/H in am. (7) DVT prophylaxis: SCDs - chemical means contraindicated at this time due to GI blood losses Total Time Total Time Spent Total Time Spent (In Minutes): 32 Total Time Includes: Examination of the Patient, Discharge Planning and Medication Reconciliation Discharge Plan Discharge Items Patient Disposition: Transfer Acute Care Hospital Reason For Visit: COLITIS Discharge Diagnosis: Colitis Condition on Discharge: Good Activity: Resume your previous activity Non-emergency contact: Primary Care Provider Call non-emergency contact if: you have any medication questions Follow-up/Referrals: Tim GOODWIN [Primary Care Provider] - Diet: Full liquid Addtl Attending Provider Instructions: Being transfferred to [facility] Pending Studies at Discharge: No Stand-Alone Forms: My [facility] Skilled Items Patient informed of condition?: Yes DNR: No Discharge Level of Care: Other Communicable Disease: No Discharge Prognosis: Stable Lines: Peripheral IV Urinary Catheter: No Medications and DC Order Prescriptions: New melatonin 3 mg Tablet 3 mg PO HS PRNQty: 5 RF: 0 tramadol 50 mg Tablet 50 mg PO Q4H PRN (Reason: Abdominal Pain) Qty: 3 RF: 0 colchicine [Colcrys] 0.6 mg Tablet 0.6 mg PO BID Qty: 0 RF: 0 Certavite-Antioxidant 18-400 mg-mcg Tablet 1 tab PO QAM Qty: 30 RF: 0 guaifenesin [Mucinex] 600 mg Tablet Extended Release 12hr 1,200 mg PO Q12 Qty: 0 RF: 0 Continued acetaminophen [Tylenol Extra Strength] 500 mg Tablet 500 mg PO TID PRN (Reason: Pain) RF: 0 Discontinued benzonatate [Tessalon Perles] 100 mg Capsule 100 mg PO TID RF: 0 Preparation H Cream 1 applic [place] BID RF: 0 hyoscyamine sulfate [Levbid] 0.375 mg Tablet Extended Release 12 Hr 0.375 mg PO BID RF: 0 cholestyramine (with sugar) [Questran] 4 gram Powder In Packet 4 g PO DAILY RF: 0 Discharge Orders: Discharge Order (Routine); Ordered 03/13/20 Ordered By: Red Gore Admission Data Admit Date/Time: 03/06/20 17:01 Attending Provider: Red Gore Admit Provider: Migel Ortega Primary Care Provider: Tim GOODWIN Other Providers: Wenceslao Chaudhary ; Migel Ortega Other Interventions: Discharge Summary Assessment (RN) Last Done: 03/13/20 14:23 Coding Level of Care Code D/C Day Management >30 mins Diagnoses Crohn's disease K50.90 Folate deficiency E53.8 Cough R05 Severe protein-calorie malnutrition E43 Colitis K52.9 Anemia D50.8 Anemia type: iron deficiency Iron deficiency anemia type: other iron deficiency DVT prophylaxis Z29.9
== END 2020-03-13 17:15 | disposition short-term general hospital (02) | DRG 385 ==
LOC: ED 12:15 → SUATTDRO 17:01 → 3E 17:01